=== PATIENT | male | born 1945 | race Caucasian/White ===

== ENCOUNTER 2023-03-10 15:53 | Inpatient (IN) ==
--- NOTE | 2023-03-10 16:18 | ED Triage Note ---
Date of Service March 10, 2023 Provider in Triage Author: Nicole Coleman History of Present Illness This patient was briefly evaluated while in triage. An abbreviated physical exam was performed. This patient is a 78-year-old Male who presents to the ED for evaluation of leg weakness and back pain. The patient states that his lower back started hurting after shoveling snow 2 weeks ago. He has slowly started to feel his legs feeling heavier, feels like his legs are getting weaker, and now feels like he has a foot drop on the left. Feels like he has no power in his legs. Saw his PCP initially and had outpatient x-rays done at [facility] that were unremarkable per patient. He has an MRI scheduled on 03/19/23, but when he called his PCP about the foot drop, his PCP sent him to the ER. Physical Exam GENERAL: Non-toxic and in no acute distress. HEENT: Pupils equal. No obvious scleral icterus. HEART: Regular rate and rhythm. LUNGS: Clear to auscultation. No accessory muscle use. ABDOMEN: Soft, non-tender. NEURO: Alert and oriented. No obvious neurological deficits on quick neuro exam. MUSCULOSKELETAL: Tender to palpation in the lower lumbar spine and paraspinal muscles. Bilateral lower extremities appear weak on quick exam in triage. Initial orders for labs and / or imaging were placed and patient was placed in the waiting area until a bed is available. Please see further documentation for the full ED course. MDM / Impression Impression Impression: Central stenosis of spinal canal, Bilateral leg weakness, Positive Lyme disease serology
[2023-03-10 17:39] LABS: Basophils # (auto) 0.18 K/uL (0.00-0.20); Eosinophils # (auto) 0.12 K/uL (0.00-0.50); Eosinophils % (auto) 2.7 %; Hematocrit (blood only) 36.4 % (42.0-52.0); Hemoglobin 12.5 g/dl (14.0-18.0); Immature Granulocytes # (auto) 0.09 K/uL (0.01-0.20); Lymphocytes # (auto) 1.16 K/uL (1.20-3.40); Lymphocytes % (auto) 26.1 %; Mean Corpuscular Hgb Conc 34.3 g/dL (32.0-36.0); Mean Corpuscular Volume 107.7 fL (80.0-100.0); Mean Platelet Volume 10.1 fL (9.4-12.4); Monocytes # (auto) 0.91 K/uL (0.11-0.59); Monocytes % (auto) 20.4 %; Neutrophils # (auto) 1.99 K/uL (1.40-6.50); Neutrophils % (auto) 44.8 %; Platelet Count 283 K/uL (130-400); RDW Coefficient of Variation 14.1 % (11.5-14.5); RDW Standard Deviation 55.6 fL (36.4-46.3); Red Blood Count 3.38 M/uL (4.70-6.10); White Blood Count 4.45 K/ul (4.8-10.8)
--- NOTE | 2023-03-10 18:03 | Emergency Department Note ---
Impression & Plan Central stenosis of spinal canal, Bilateral leg weakness, Positive Lyme disease serology ED Provider Note NAME: ROBERTO ECHEVERRIA AGE: 78 SEX: M : 1945 ARRIVES VIA: Walk-In INFORMANT: Patient, the patient's family member ED PROVIDER(S): Henrique Marr DO CHIEF COMPLAINT: Weakness HPI: The patient is a 78-year-old male who presented to the emergency department at the request of his primary care physician for an evaluation of lower extremity weakness. The patient's had 2 weeks of symptoms. He is noticed increasing weakness of both legs but worse on the left. He denies having any difficulty with his upper extremities or difficulty speaking. He denies having any headaches. He had x-rays of his lower back done by his primary care physician. He went to see him today for follow-up appointment and was referred to the emergency department for further evaluation. ROS: See above HPI for pertinent positives & negatives. A total of 10 systems reviewed and were otherwise negative. PAST MEDICAL HISTORY: See Below PAST SURGICAL HISTORY: See Below FAMILY HISTORY: See Below SOCIAL HISTORY: See Below HOME MEDICATIONS: See Below ALLERGIES: See Below VITALS: See Below PHYSICAL EXAMINATION: GENERAL: Patient is awake alert in no acute distress patient is resting comfortably and showing no signs of anxiety EYES: The conjunctivae are clear. The pupils are round and reactive. EARS, NOSE, MOUTH AND THROAT: The nose is without any evidence of any deformity. NECK: The neck is nontender and supple. RESPIRATORY: Normal respiratory effort is noted there is no evidence of wheezing rhonchi or rales CARDIOVASCULAR: Regular rate and rhythm noted there no murmurs rubs or gallops normal S1 normal S2. GASTROINTESTINAL: The abdomen is soft. Abdomen is nontender. BACK: No midline tenderness or or step-off noted range of motion in flexion extension as well as rotation no signs of muscle spasm noted MUSCULOSKELETAL/EXTREMITIES: There is no evidence of gross deformity full range of motion is noted in the hips and shoulders. SKIN: There is no obvious evidence of any rash. There are no petechiae, pallor or cyanosis noted. NEUROLOGIC: Patient is awake alert and oriented x3. There was no drift in the upper extremities. Speech is clear. There is no facial droop. Both lower extremities appear very weak with absent patellar tendon reflexes. There is a foot drop on the left. MEDICAL DECISION MAKING: The patient is a 78-year-old male who presented to the emergency department for an evaluation of lower extremity weakness. The patient has had ongoing symptoms over the course of the last few weeks. The patient does have absent patellar tendon reflexes bilaterally and appears to have a foot drop on the right. This appears to be new according to family. He had x-rays as an outpatient but no definite cause for his symptoms could be found. He presented to the emergency department tonight for further evaluation. The patient had the majority of his workup done from the waiting room. He was taken back to a room and I was able to evaluate the patient. His gait does appear to be consistent with some degree of spinal cord abnormality. MRI does appear to be consistent with significant central canal stenosis. He was treated with Decadron in the emergency department. I discussed his condition with the on-call orthopedic spinal specialist. He does recommend inpatient management for possible evaluation for surgery. I discussed this with the patient and his family member. They were agreeable with this plan. [facility] The patient did have a positive Lyme screen. I am unsure of the significance of this. I am not sure this fits with a Lyme disease but reportedly the patient did have some joint pain prior to the onset of the symptoms. I will defer antibiotic treatment to the admitting team. Triage Nursing notes reviewed. Prior medical records reviewed Vital Signs: reviewed and remarkable for elevated blood pressure. Differential diagnosis: Infection, dehydration, metabolic abnormality, hypo/hyperglycemia, electrolyte disturbance, anemia, hypoxia, cardiac sources, intracerebral event, toxicologic, neurologic, as well as other pathologies. ER treatment provided: See below Diagnostics interpreted by me: ECG: none Cardiac Monitoring: An order was placed for continuous cardiac monitoring. The monitor shows a rate of 71 bpm with sinus rhythm. Laboratory studies: As stated above and show below. Imaging studies: See below. Radiographic imaging was reviewed by myself Consultation(s): I discussed this case with Dr. Cote who is on-call for orthopedic spine. Dr. Munroe [facility]. Past Med/Surg History Medical History BPH with obstruction/lower urinary tract symptoms Tobacco use Proteinuria Colitis Aortic aneurysm Essential hypertension Cervical radiculopathy Dyslipidemia Peripheral vascular disease Type 2 diabetes mellitus Surgical History History of intravascular stent placement H/O wrist surgery History of carotid endarterectomy right S/P AAA repair Social History Smoking Status: Current every day smoker Tobacco Type: E-cigarettes / Vaping Cigarettes Per Day: 5-10; Preferred Language: Egyptian Communication Ability: Effective [employer] Instrument Repairer Required: No marital status: current occupational status: retired 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 Feels Safe at Home: Yes Allergies Allergies Allergy/AdvReac Type Severity Reaction Status Date / Time bee venom protein (honey bee) Allergy Severe ANAPHYLAXIS Verified 02/18/23 11:31 Home Meds Home Medications Medication Instructions Recorded Confirmed atorvastatin 40 mg tablet 40 mg PO QPM 12/07/19 03/10/23 epinephrine 0.3 mg/0.3 mL 0.3 mg IM ONCE PRN anaphylaxis 12/07/19 03/10/23 injection, auto-injector (EpiPen 2-Evens) losartan 100 mg tablet 100 mg PO QAM 12/07/19 03/10/23 aspirin 81 mg chewable tablet 81 mg PO QAM 03/01/20 03/10/23 gabapentin 300 mg capsule 300 mg PO TID 09/03/20 03/10/23 fenofibrate nanocrystallized 145 145 mg PO PM 09/03/22 03/10/23 mg tablet ibuprofen 200 mg tablet (Advil) 600 mg PO Q6H PRN Pain 10/09/22 03/10/23 amlodipine 2.5 mg tablet 2.5 mg PO PM 03/10/23 03/10/23 dapagliflozin propanediol 10 mg 10 mg PO QAM 03/10/23 03/10/23 tablet (Farxiga) Results & Data (ED) Vital Signs Vital Signs - 24 hr 03/10/23 16:15 03/10/23 19:43 Temperature 36.9 C Temperature Source Temporal Artery Scan Pulse Rate 76 Pulse Rate [Right Finger] 71 Pulse Rhythm [Right Finger] Regular Pulse Strength [Right Finger] Normal Respiratory Rate 16 16 Respiratory Effort / Characteristics Non-Labored Spontaneous Non-Labored Spontaneous Respiratory Depth Normal Normal Respiratory Pattern Regular Blood Pressure 166/72 H Blood Pressure [Right Arm] 165/66 H Blood Pressure Mean 103 Blood Pressure Mean [Right Arm] 99 Blood Pressure Position [Right Arm] Lying Pulse Oximetry 93 95 Oxygen Delivery Method Room Air Room Air Sepsis Recent Fever Within 48 Hours No Sepsis New/Unexplained Change in Mental Status N/A Sepsis Action Taken by Nursing No Action Required Home Medications Current Medication List: was personally reviewed by me Laboratory Data Attestation: I reviewed the patient's lab results. 03/10/23 17:16 03/10/23 17:16 Lab Results 03/10/23 03/10/23 Range/Units 17:16 19:44 WBC 4.45 L (4.8-10.8) K/ul RBC 3.38 L (4.70-6.10) M/uL Hgb 12.5 L (14.0-18.0) g/dl Hct 36.4 L (42.0-52.0) % MCV 107.7 H (80.0-100.0) fL MCH 37.0 H (25.0-34.0) pg MCHC 34.3 (32.0-36.0) g/dL RDW Std Deviation 55.6 H (36.4-46.3) fL RDW Coeff of Germán 14.1 (11.5-14.5) % Plt Count 283 (130-400) K/uL MPV 10.1 (9.4-12.4) fL Immature Gran % (Auto) 2.0 % Neut % (Auto) 44.8 % Lymph % (Auto) 26.1 % Dunn % (Auto) 20.4 % Eos % (Auto) 2.7 % Baso % (Auto) 4.0 % Neut # (Auto) 1.99 (1.40-6.50) K/uL Lymph # (Auto) 1.16 L (1.20-3.40) K/uL Dunn # (Auto) 0.91 H (0.11-0.59) K/uL Eos # (Auto) 0.12 (0.00-0.50) K/uL Baso # (Auto) 0.18 (0.00-0.20) K/uL Immature Gran # (Auto) 0.09 (0.01-0.20) K/uL Sodium 139 (136-145) mmol/L Potassium 4.5 (3.5-5.1) mmol/L Chloride 106 (98-107) mmol/L Carbon Dioxide 24 (21-32) mmol/L Anion Gap 9 (3-11) BUN 38 H (6-23) mg/dl Creatinine 1.60 H (0.6-1.4) mg/dl Est Cr Clr Drug Dosing Not Reportable Est GFR ( Amer) 47.5 ml/min Est GFR (Non-Af Amer) 40.9 ml/min BUN/Creatinine Ratio 23.8 H (10-20) Glucose 96 (70-99(Fasting)) mg/dl Calcium 9.6 (8.6-10.3) mg/dl Magnesium 2.5 H (1.7-2.4) mg/dl Total Bilirubin 0.4 (0.2-1.0) mg/dl AST 25 (13-39) U/L ALT 19 (7-52) U/L Alkaline Phosphatase 67 (34-104) U/L Total Creatine Kinase 291 H (30-223) U/L Total Protein 8.3 (6.0-8.3) gm/dl Albumin 4.8 (3.4-5.0) gm/dl Globulin 3.5 (2.5-4.0) gm/dl Albumin/Globulin Ratio 1.4 (0.9-2) TSH 3.463 (0.300-4.500) uIu/ml Urine Color Yellow Urine Appearance Clear (Clear) Urine pH 5.5 (4.5-7.5) Ur Specific [place] 1.018 (1.000-1.030) Urine Protein 2+ H (Negative) Urine Glucose (UA) 3+ H (Negative) Urine Ketones Negative (Negative) Urine Blood Negative (Negative) Urine Nitrite Negative (Negative) Urine Bilirubin Negative (Negative) Urine Urobilinogen Negative (Negative) Ur Leukocyte Esterase Negative (Negative) Urine WBC (Auto) 0 (0-5) /hpf Urine RBC (Auto) 0-4 (0-4) /hpf U Hyaline Cast (Auto) 0 (0-5) /lpf U Epithel Cells (Auto) 0-5 (0-5) /lpf Urine Bacteria (Auto) Negative (Negative) Lyme Disease IgG Ab Positive A (Negative) Lyme Disease IgM Ab Positive A (Negative) Administered Medications Sodium Chloride (Nss) 1,000 mls @ 999 mls/hr IV .Q1H1M ONE Stop: 03/10/23 22:07 Last Admin: 03/10/23 21:11 Dose: 999 mls/hr Documented By: KMS Discontinued Medications Dexamethasone Sodium Phosphate (DexamethasonePf 10 Mg/Ml Vial) 10 mg IV NOW ONE Stop: 03/10/23 20:09 Last Admin: 03/10/23 20:18 Dose: 10 mg Documented By: IDD Imaging Data Attestation: I personally reviewed and interpreted this imaging study as follows: My Impression: MRI was obtained in the emergency department. I did review the films. There is some degree of canal compromise noted on the MRI especially on axial view. Final report below. Radiologist's Impression: Lumbar Spine MRI 03/10/23 16:19 MR lumbar spine wo con CLINICAL HISTORY: 78 years-old Male with Low back pain, foot drop, weakness of his legs. COMPARISON: None. TECHNIQUE: Multiplanar, multi sequence MRI of the lumbar spine was performed without intravenous contrast. FINDINGS: Study is mildly motion degraded.r partially imaged 4 cm T2 hyperintense lesion of the superior pole left kidney suggestive of a probable cyst. Additional bilateral renal cysts. There is abnormal appearance of the iliac bifurcation which may be on a postsurgical basis. No abdominal aortic aneurysm. Mild infrarenal ectasia of the abdominal aorta measuring up to 2.3 cm. No acute fracture, subluxation, endplate erosion or marrow replacing process. There is transitional lumbosacral anatomy. For the purposes of this exam, the L5-S1 disc space will be described on axial image 28 series 7. Conus medullaris terminates at the L1 level. Mild dextroscoliosis. T12-L1: Moderate facet arthrosis. No central canal or neural foraminal stenosis. L1-L2: Mild intervertebral disc space narrowing and spondylotic spurring with small circumferential annular disc bulge. Moderate facet arthrosis. No central canal or neural foraminal stenosis. L2-L3: Moderate intervertebral disc space narrowing and spondylotic spurring with circumferential annular disc bulging, ligamentum flavum thickening and severe facet arthrosis. Moderate to severe central canal stenosis with AP dimension of the thecal sac measuring 6 mm. Moderate right with severe left lateral recess narrowing. [id number] right with severe left foraminal stenosis. L3-L4: Degenerative related 4 mm anterolisthesis. Moderate intervertebral disc space narrowing and spondylotic spurring with circumferential annular disc bulging/disc osteophyte complex. Minimal thickening thickening with severe facet arthrosis and trace right facet effusion. Severe central canal stenosis with AP dimension of the thecal sac measuring 5 mm. Severe narrowing of the lateral recesses. Moderate to severe right with moderate left foraminal narrowing. L4-L5: Moderate intervertebral disc space narrowing and spondylotic spurring with circumferential annular disc bulging/posterior disc osteophyte complex. Ligament of thickening with advanced facet arthrosis and left facet effusion. Mild central canal stenosis with AP dimension of the thecal sac measuring 9 mm. Moderate narrowing of the lateral recesses. Moderate to severe right with moderate left foraminal narrowing. L5-S1: Severe intervertebral disc space narrowing. Circumferential disc osteophyte complex. Ligamentum flavum thickening with moderate to severe facet arthrosis. Flattening of the ventral thecal sac without significant central canal stenosis. There is at least mild bilateral foraminal narrowing. Severe right with moderate left foraminal stenosis. IMPRESSION: 1. No acute fracture or subluxation. 2. Transitional lumbosacral anatomy with numbering as above. 3. Discogenic degeneration with spondylotic spurring and facet arthrosis as detailed above. 4. There is severe central canal stenosis at L3-L4 with moderate to severe central canal stenosis at L2-L3. 5. Multilevel foraminal narrowing. ACT 112: Negative or not required by law. The above report was generated using voice recognition software. It may contain grammatical, syntax or spelling errors. Electronically signed by: Devon Guillen M.D. 03/10/2023 7:14 PM Discharge Plan Visit Data Chief Complaint: Leg Weakness, Bilateral Stated Complaint: TROUBLE WALKING, WEAKNESS IN LEGS, BACK PAIN ED Provider: Henrique Marr Discharge Problem: Central stenosis of spinal canal, Bilateral leg weakness, Positive Lyme disease serology Patient Disposition: Being Evaluated by Hospitalist Forms Stand Alone Forms: My [facility] Prescriptions Prescriptions: No Action epinephrine [EpiPen 2-Evens] 0.3 mg/0.3 mL auto-injector 0.3 mg IM ONCE PRN (Reason: anaphylaxis) losartan 100 mg tablet 100 mg PO QAM atorvastatin 40 mg tablet 40 mg PO QPM gabapentin 300 mg capsule 300 mg PO TID Rx Instructions: taking 600 mg daily aspirin 81 mg tablet,chewable 81 mg PO QAM ibuprofen [Advil] 200 mg tablet 600 mg PO Q6H PRN (Reason: Pain) fenofibrate nanocrystallized 145 mg tablet 145 mg PO PM Farxiga 10 mg tablet 10 mg PO QAM amlodipine 2.5 mg tablet 2.5 mg PO PM Referrals Referrals: Vanessa Jacobs MD [Primary Care Provider] -
[2023-03-10 18:10] LABS: Thyroid Stimulating Hormone 3.463 uIu/ml (0.300-4.500)
[2023-03-10 18:34] LABS: Lyme Ab IgG w/WB Rflx Positive (Negative); Lyme Ab IgM w/WB Rflx Positive (Negative)
[2023-03-10 19:14] LABS: Albumin Level 4.8 gm/dl (3.4-5.0); Anion Gap 9 (3-11); Bilirubin,Total 0.4 mg/dl (0.2-1.0); Calcium 9.6 mg/dl (8.6-10.3); Carbon Dioxide 24 mmol/L (21-32); Chloride 106 mmol/L (98-107); Magnesium 2.5 mg/dl (1.7-2.4); Potassium 4.5 mmol/L (3.5-5.1); Sodium 139 mmol/L (136-145)
--- NOTE | 2023-03-10 19:17 | Magnetic Resonance Report ---
MR lumbar spine wo con CLINICAL HISTORY: 78 years-old Male with Low back pain, foot drop, weakness of his legs. COMPARISON: None. TECHNIQUE: Multiplanar, multi sequence MRI of the lumbar spine was performed without intravenous cont rast. FINDINGS: Study is mildly motion degraded.r partially imaged 4 cm T2 hyperintense lesion of the superior pole l eft kidney suggestive of a probable cyst. Additional bilateral renal cysts. There is abnormal appeara nce of the iliac bifurcation which may be on a postsurgical basis. No abdominal aortic aneurysm. Mild infrarenal ectasia of the abdominal aorta measuring up to 2.3 cm. No acute fracture, subluxation, en dplate erosion or marrow replacing process. There is transitional lumbosacral anatomy. For the purpos es of this exam, the L5-S1 disc space will be described on axial image 28 series 7. Conus medullaris terminates at the L1 level. Mild dextroscoliosis. T12-L1: Moderate facet arthrosis. No central canal or neural foraminal stenosis. L1-L2: Mild intervertebral disc space narrowing and spondylotic spurring with small circumferential annular disc bulge. Moderate facet arthrosis. No central canal or neural foraminal stenosis. L2-L3: Moderate intervertebral disc space narrowing and spondylotic spurring with circumferential an nular disc bulging, ligamentum flavum thickening and severe facet arthrosis. Moderate to severe centr al canal stenosis with AP dimension of the thecal sac measuring 6 mm. Moderate right with severe left lateral recess narrowing. [id number] right with severe left foraminal stenosis. L3-L4: Degenerative related 4 mm anterolisthesis. Moderate intervertebral disc space narrowing and s pondylotic spurring with circumferential annular disc bulging/disc osteophyte complex. Minimal thicke errol thickening with severe facet arthrosis and trace right facet effusion. Severe central canal sten osis with AP dimension of the thecal sac measuring 5 mm. Severe narrowing of the lateral recesses. Mo derate to severe right with moderate left foraminal narrowing. L4-L5: Moderate intervertebral disc space narrowing and spondylotic spurring with circumferential an nular disc bulging/posterior disc osteophyte complex. Ligament of thickening with advanced facet arth rosis and left facet effusion. Mild central canal stenosis with AP dimension of the thecal sac measur ing 9 mm. Moderate narrowing of the lateral recesses. Moderate to severe right with moderate left for aminal narrowing. L5-S1: Severe intervertebral disc space narrowing. Circumferential disc osteophyte complex. Ligament um flavum thickening with moderate to severe facet arthrosis. Flattening of the ventral thecal sac wi thout significant central canal stenosis. There is at least mild bilateral foraminal narrowing. Sever e right with moderate left foraminal stenosis. IMPRESSION: 1. No acute fracture or subluxation. 2. Transitional lumbosacral anatomy with numbering as above. 3. Discogenic degeneration with spondylotic spurring and facet arthrosis as detailed above. 4. There is severe central canal stenosis at L3-L4 with moderate to severe central canal stenosis at L2-L3. 5. Multilevel foraminal narrowing. ACT 112: Negative or not required by law. The above report was generated using voice recognition software. It may contain grammatical, syntax o r spelling errors. Electronically signed by: Devon Guillen M.D. 03/10/2023 7:14 PM
[2023-03-10 19:20] LABS: Alanine Aminotransferase 19 U/L (7-52); Albumin Globulin Ratio 1.4 (0.9-2); Alkaline Phosphatase 67 U/L (34-104); Aspartate Aminotransferase 25 U/L (13-39); BUN Creatinine Ratio 23.8 (10-20); Blood Urea Nitrogen 38 mg/dl (6-23); Creatine Kinase 291 U/L (30-223); Est GFR (African American) 47.5 ml/min; Est GFR (Non-African American) 40.9 ml/min; Globulin 3.5 gm/dl (2.5-4.0); Glucose 96 mg/dl (70-99(Fasting)); Total Protein 8.3 gm/dl (6.0-8.3)
[2023-03-10 19:56] LABS: Appearance Urine Clear (Clear); Bacteria Urine Automated Negative (Negative); Bilirubin Urine Negative (Negative); Blood Urine Negative (Negative); Cast Urine Automated 0 /lpf (0-5); Color Urine Yellow; Epithelial Cell Urine Auto 0-5 /lpf (0-5); Glucose Urine UA 3+ (Negative); Ketones Urine Negative (Negative); Leukocyte Esterase Urine Negative (Negative); Nitrite Urine Negative (Negative); Protein Urine 2+ (Negative); RBC Urine Automated 0-4 /hpf (0-4); Specific Gravity Urine 1.018 (1.000-1.030); Urobilinogen Urine Negative (Negative); WBC Urine Automated 0 /hpf (0-5); pH Urine 5.5 (4.5-7.5)
[2023-03-10] MEDS ORDERED: dexAMETHasone**PF** 10 MG/ML VIAL IV ONE (20:08)
[2023-03-10] MEDS ORDERED: SODIUM CHLORIDE 0.9% 1,000 ML IV ONE (21:07)
[2023-03-10] MEDS ORDERED: DOXYCYCLINE HYCLATE 100 MG in DEXTROSE 5% MINI-B 100 ML IV STA (21:16)
[2023-03-10] MEDS ORDERED: GABAPENTIN 300 MG CAP PO STA (21:17)
[2023-03-10] MEDS ORDERED: amLODIPine BESYLATE 5 MG TAB PO ONE (21:17)
[2023-03-10] MEDS ORDERED: FENOFIBRATE NANOCRYSTALLIZED 145 MG TABLET PO STA (21:17)
[2023-03-10] MEDS ORDERED: ATORVASTATIN 40 MG TAB PO STA (21:17)
--- NOTE | 2023-03-10 21:29 | History & Physical Report ---
Date of Service March 10, 2023 Assessment & Plan (1) Lower extremity weakness: Plan: 78 yo male with PMHx of vitamin D deficiency, CKD, BPH w/ LUTS, DM2, HLD, HTN, and carotid artery occlusion s/p ?TCAR presents with bilateral lower extremity weakness. #Bilateral Lower Extremity Weakness -presented with 2 weeks progressively worsening lower extremity weakness and now L foot drop. Lumbar MRI with central canal stenosis which could be contributing to symptoms, however, patient also presumptively positive for lyme IgM, western blot pending. I suspect his acute symptoms are more likely due to infection as he was asymptomatic prior to 2 weeks ago - will cont. to monitor with treatment. -doxycycline 100mg bid - defer length of treatment to day team, especially if W[employer]ING [employer]ING [employer] SUPERVISOR involvement given foot drop -received Decadron 10mg in ED. Cont. 4mg q8h. -consulted ortho spine #Anemia -Hgb 12.5 on admission. MCV 107. -ordered iron studies, B12 level #CKD stage G2/A3 (mild impairment) -Cr on admission 1.6. Elevation appears chronic. Follows nephro. -will give 1L NSS -hold farxiga #CAD, PVD, Carotid Stenosis s/p ?TCAR -cont. asa, statin, losartan #HLD -cont. statin, fenofibrate #HTN -cont. amlodipine, losartan #DM2 -hold farxiga -placed on SSI #Neuropathy cont. gabapentin DVT ppx: heparin SQ FEN/GI: HH, DM2 Code Status: DNI only Dispo: med tele (2) Dyslipidemia: (3) Peripheral vascular disease: (4) Type 2 diabetes mellitus: (5) Chronic kidney disease: (6) Proteinuria: (7) Carotid artery occlusion: (8) Essential hypertension: (9) BPH with obstruction/lower urinary tract symptoms: (10) Vitamin D deficiency: History of Present Illness Chief Complaint: bilateral leg weakness Primary Care Provider: Vanessa Jacobs MD 78 yo male with PMHx of vitamin D deficiency, CKD, BPH w/ LUTS, DM2, HLD, HTN, and carotid artery occlusion s/p ?TCAR presents with bilateral lower extremity weakness. 2 weeks ago patient had sudden onset low back pain and bilateral lower extremity weakness which has progressively worsened. Denies injury. He has been using a cane to help with ambulation otherwise previous to symptoms he was walking on his own. He also does note a left foot drop as of yesterday. He does note he had an episode of foot drop a while back with quick resolution which was attributed to possible TIA. Otherwise he denies headache, fevers, chills, fatigue, chest pain, shortness of breath, abdominal pain, nausea, vomiting, diarrhea, dysuria, extremity numbness/tingling. No bladder or bowel incontinence. He denies any known tick bites but [facility] Allergies Allergy/AdvReac Type Severity Reaction Status Date / Time bee venom protein (honey bee) Allergy Severe ANAPHYLAXIS Verified 02/18/23 11:31 Home Medications Medication Instructions Recorded Confirmed Type atorvastatin 40 mg tablet 40 mg PO QPM 12/07/19 03/10/23 History epinephrine 0.3 mg/0.3 mL 0.3 mg IM ONCE PRN anaphylaxis 12/07/19 03/10/23 History injection, auto-injector (EpiPen 2-Evens) losartan 100 mg tablet 100 mg PO QAM 12/07/19 03/10/23 History aspirin 81 mg chewable tablet 81 mg PO QAM 03/01/20 03/10/23 History gabapentin 300 mg capsule 300 mg PO TID 09/03/20 03/10/23 History fenofibrate nanocrystallized 145 145 mg PO PM 09/03/22 03/10/23 History mg tablet ibuprofen 200 mg tablet (Advil) 600 mg PO Q6H PRN Pain 10/09/22 03/10/23 History amlodipine 2.5 mg tablet 2.5 mg PO PM 03/10/23 03/10/23 History dapagliflozin propanediol 10 mg 10 mg PO QAM 03/10/23 03/10/23 History tablet (Farxiga) doxycycline hyclate 100 mg capsule 100 mg PO BID #56 caps 03/11/23 Rx prednisone 10 mg tablet See Rx Instructions .Route 03/11/23 Rx .COMPLEX #12 tabs Past Med/Surg History Medical History BPH with obstruction/lower urinary tract symptoms Tobacco use Proteinuria Colitis Aortic aneurysm Essential hypertension Cervical radiculopathy Dyslipidemia Peripheral vascular disease Type 2 diabetes mellitus Surgical History History of intravascular stent placement H/O wrist surgery History of carotid endarterectomy right S/P AAA repair Social History Smoking Status: Current every day smoker Tobacco Type: E-cigarettes / Vaping Cigarettes Per Day: 5-10; Do You Dip or Chew Tobacco: No; Hx Alcohol Use: No Hx Substance Use: No Preferred Language: [place] Communication Ability: Effective Community Health Nurse Staff Required: No Beliefs That Will Affect Care: None marital status: Current Living Situation: Family current occupational status: retired 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 AOx3. Vitals as above. HEENT: No scleral injection or discharge.Moist mucous membranes. Neck: Supple without lymphadenopathy. Trachea midline. Lungs: Clear to auscultation bilaterally with good effort. No wheezes/rales/rhonchi. Cardiac: Regular rate and rhythm.No murmurs. No lower extremity edema. 2+ distal peripheral pulses. Abdomen: Bowel sounds present. Soft, nontender, and nondistended.No guarding. No hepatosplenomegaly. MSK: No cyanosis or clubbing. Upper extremities 5/5 strength. Negative straight leg raise. +foot drop L with 2/5 strength. Skin: No rashes, warm, dry. Neurologic: Grossly intact cranial nerves. PERRL. Sensation normal bilateral extremities. Results & Data Results & Data Vital Signs (Past 12 Hours) Vital Signs Temp Pulse Pulse Resp BP BP Pulse Ox 03/10/23 19:43 71 16 165/66 H 95 03/10/23 16:15 36.9 C 76 16 166/72 H 93 O2 Del Method 03/10/23 19:43 Room Air 03/10/23 16:15 Room Air Laboratory Results Laboratory Results WBC 4.45 K/ul (4.8-10.8) L 03/10/23 17:16 RBC 3.38 M/uL (4.70-6.10) L 03/10/23 17:16 Hgb 12.5 g/dl (14.0-18.0) L 03/10/23 17:16 Hct 36.4 % (42.0-52.0) L 03/10/23 17:16 MCV 107.7 fL (80.0-100.0) H 03/10/23 17:16 MCH 37.0 pg (25.0-34.0) H 03/10/23 17:16 MCHC 34.3 g/dL (32.0-36.0) 03/10/23 17:16 RDW Std Deviation 55.6 fL (36.4-46.3) H 03/10/23 17:16 RDW Coeff of Germán 14.1 % (11.5-14.5) 03/10/23 17:16 Plt Count 283 K/uL (130-400) 03/10/23 17:16 MPV 10.1 fL (9.4-12.4) 03/10/23 17:16 Immature Gran % (Auto) 2.0 % 03/10/23 17:16 Neut % (Auto) 44.8 % 03/10/23 17:16 Lymph % (Auto) 26.1 % 03/10/23 17:16 [place] % (Auto) 20.4 % 03/10/23 17:16 Eos % (Auto) 2.7 % 03/10/23 17:16 Baso % (Auto) 4.0 % 03/10/23 17:16 Neut # (Auto) 1.99 K/uL (1.40-6.50) 03/10/23 17:16 Lymph # (Auto) 1.16 K/uL (1.20-3.40) L 03/10/23 17:16 [place] # (Auto) 0.91 K/uL (0.11-0.59) H 03/10/23 17:16 Eos # (Auto) 0.12 K/uL (0.00-0.50) 03/10/23 17:16 Baso # (Auto) 0.18 K/uL (0.00-0.20) 03/10/23 17:16 Immature Gran # (Auto) 0.09 K/uL (0.01-0.20) 03/10/23 17:16 Sodium 139 mmol/L (136-145) 03/10/23 17:16 Potassium 4.5 mmol/L (3.5-5.1) 03/10/23 17:16 Chloride 106 mmol/L (98-107) 03/10/23 17:16 Carbon Dioxide 24 mmol/L (21-32) 03/10/23 17:16 Anion Gap 9 (3-11) 03/10/23 17:16 BUN 38 mg/dl (6-23) H 03/10/23 17:16 Creatinine 1.60 mg/dl (0.6-1.4) H 03/10/23 17:16 Est Cr Clr Drug Dosing Not Reportable 03/10/23 17:16 Est GFR ( Amer) 47.5 ml/min 03/10/23 17:16 Est GFR (Non-Af Amer) 40.9 ml/min 03/10/23 17:16 BUN/Creatinine Ratio 23.8 (10-20) H 03/10/23 17:16 Glucose 96 mg/dl (70-99(Fasting)) 03/10/23 17:16 Calcium 9.6 mg/dl (8.6-10.3) 03/10/23 17:16 Magnesium 2.5 mg/dl (1.7-2.4) H 03/10/23 17:16 Total Bilirubin 0.4 mg/dl (0.2-1.0) 03/10/23 17:16 AST 25 U/L (13-39) 03/10/23 17:16 ALT 19 U/L (7-52) 03/10/23 17:16 Alkaline Phosphatase 67 U/L (34-104) 03/10/23 17:16 Total Creatine Kinase 291 U/L (30-223) H 03/10/23 17:16 Total Protein 8.3 gm/dl (6.0-8.3) 03/10/23 17:16 Albumin 4.8 gm/dl (3.4-5.0) 03/10/23 17:16 Globulin 3.5 gm/dl (2.5-4.0) 03/10/23 17:16 Albumin/Globulin Ratio 1.4 (0.9-2) 03/10/23 17:16 TSH 3.463 uIu/ml (0.300-4.500) 03/10/23 17:16 Urine Color Yellow 03/10/23 19:44 Urine Appearance Clear (Clear) 03/10/23 19:44 Urine pH 5.5 (4.5-7.5) 03/10/23 19:44 Ur Specific [place] 1.018 (1.000-1.030) 03/10/23 19:44 Urine Protein 2+ (Negative) H 03/10/23 19:44 Urine Glucose (UA) 3+ (Negative) H 03/10/23 19:44 Urine Ketones Negative (Negative) 03/10/23 19:44 Urine Blood Negative (Negative) 03/10/23 19:44 Urine Nitrite Negative (Negative) 03/10/23 19:44 Urine Bilirubin Negative (Negative) 03/10/23 19:44 Urine Urobilinogen Negative (Negative) 03/10/23 19:44 Ur Leukocyte Esterase Negative (Negative) 03/10/23 19:44 Urine WBC (Auto) 0 /hpf (0-5) 03/10/23 19:44 Urine RBC (Auto) 0-4 /hpf (0-4) 03/10/23 19:44 U Hyaline Cast (Auto) 0 /lpf (0-5) 03/10/23 19:44 U Epithel Cells (Auto) 0-5 /lpf (0-5) 03/10/23 19:44 Urine Bacteria (Auto) Negative (Negative) 03/10/23 19:44 Lyme Disease IgG Ab Positive (Negative) A 03/10/23 17:16 Lyme Disease IgM Ab Positive (Negative) A 03/10/23 17:16 Impressions Lumbar Spine MRI 03/10/23 16:19 MR lumbar spine wo con CLINICAL HISTORY: 78 years-old Male with Low back pain, foot drop, weakness of his legs. COMPARISON: None. TECHNIQUE: Multiplanar, multi sequence MRI of the lumbar spine was performed without intravenous contrast. FINDINGS: Study is mildly motion degraded.r partially imaged 4 cm T2 hyperintense lesion of the superior pole left kidney suggestive of a probable cyst. Additional bilateral renal cysts. There is abnormal appearance of the iliac bifurcation which may be on a postsurgical basis. No abdominal aortic aneurysm. Mild infrarenal ectasia of the abdominal aorta measuring up to 2.3 cm. No acute fracture, subluxation, endplate erosion or marrow replacing process. There is transitional lumbosacral anatomy. For the purposes of this exam, the L5-S1 disc space will be described on axial image 28 series 7. Conus medullaris terminates at the L1 level. Mild dextroscoliosis. T12-L1: Moderate facet arthrosis. No central canal or neural foraminal stenosis. L1-L2: Mild intervertebral disc space narrowing and spondylotic spurring with small circumferential annular disc bulge. Moderate facet arthrosis. No central canal or neural foraminal stenosis. L2-L3: Moderate intervertebral disc space narrowing and spondylotic spurring with circumferential annular disc bulging, ligamentum flavum thickening and severe facet arthrosis. Moderate to severe central canal stenosis with AP dimension of the thecal sac measuring 6 mm. Moderate right with severe left lateral recess narrowing. [id number] right with severe left foraminal stenosis. L3-L4: Degenerative related 4 mm anterolisthesis. Moderate intervertebral disc space narrowing and spondylotic spurring with circumferential annular disc bulging/disc osteophyte complex. Minimal thickening thickening with severe facet arthrosis and trace right facet effusion. Severe central canal stenosis with AP dimension of the thecal sac measuring 5 mm. Severe narrowing of the lateral recesses. Moderate to severe right with moderate left foraminal narrowing. L4-L5: Moderate intervertebral disc space narrowing and spondylotic spurring with circumferential annular disc bulging/posterior disc osteophyte complex. Ligament of thickening with advanced facet arthrosis and left facet effusion. Mild central canal stenosis with AP dimension of the thecal sac measuring 9 mm. Moderate narrowing of the lateral recesses. Moderate to severe right with moderate left foraminal narrowing. L5-S1: Severe intervertebral disc space narrowing. Circumferential disc osteophyte complex. Ligamentum flavum thickening with moderate to severe facet arthrosis. Flattening of the ventral thecal sac without significant central ca nal stenosis. There is at least mild bilateral foraminal narrowing. Severe right with moderate left foraminal stenosis. IMPRESSION: 1. No acute fracture or subluxation. 2. Transitional lumbosacral anatomy with numbering as above. 3. Discogenic degeneration with spondylotic spurring and facet arthrosis as detailed above. 4. There is severe central canal stenosis at L3-L4 with moderate to severe central canal stenosis at L2-L3. 5. Multilevel foraminal narrowing. ACT 112: Negative or not required by law. The above report was generated using voice recognition software. It may contain grammatical, syntax or spelling errors. Electronically signed by: Devon Guillen M.D. 03/10/2023 7:14 PM Code Status & VTE Plan VTE Prophylaxis Plan VTE Prophylaxis will be ordered: Yes Supervising Physician Co-Signing Physician Notes Attending addendum: I have physically seen this patient, have supervised the medical residents activities, and agree with the H&P unless as otherwise noted. Assessment and Plan: Bilateral lower extremity weakness- Patient has tested positive for Lyme IgM and IgG MRI lumbar spine notes a central canal stenosis Received Decadron 10 mg IV in ED, will continue 4 mg IV every 8 hours Consult orthopedic spine surgery Dr. Cote Lyme disease- Presumptive treatment with doxycycline 100 mg p.o. twice daily May only not be contributing to lower extremity weakness Follow response to treatment Anemia- Hemoglobin 12.5 with an MCV of 107 B12 and iron studies ordered and pending Acute kidney injury superimposed on CKD stage III- Creatinine 1.6, with baseline 1.50- 1 L normal saline as noted, recheck laboratories in a.m. Hold losartan and Farxiga for now Remaining orders and notations as noted Resident Activity Tracking Resident Involvement: Resident Care Provided Care Provided: Adult [facility]
[2023-03-10] MEDS ORDERED: GLUCOSE 40% GEL 15 GM TUBE PO PRN (23:01)
[2023-03-10] MEDS ORDERED: ONDANSETRON 4 MG OD TAB PO PRN (23:01)
[2023-03-10] MEDS ORDERED: DEXTROSE 50% 50 ML SYRINGE IV PRN (23:01)
[2023-03-10] MEDS ORDERED: POLYETHYLENE (MIRALAX) 17 GM PACK PO PRN (23:01)
[2023-03-10] MEDS ORDERED: CARBOHYDRATES FOR HYPOGLYCEMIA PO PRN (23:01)
[2023-03-10] MEDS ORDERED: GLUCAGON FOR INJ 1 MG VIAL SQ PRN (23:01)
[2023-03-10] MEDS ORDERED: GLUCOSE 10 TAB/TUBE PO PRN (23:01)
[2023-03-10] MEDS ORDERED: ACETAMINOPHEN 325 MG TAB PO PRN (23:01)
[2023-03-11 06:28] LABS: Basophils # (auto) 0.04 K/uL (0.00-0.20); Basophils % (auto) 1.2 %; Hematocrit (blood only) 36.5 % (42.0-52.0); Hemoglobin 11.8 g/dl (14.0-18.0); Immature Granulocytes # (auto) 0.06 K/uL (0.01-0.20); Immature Granulocytes % (auto) 1.8 %; Lymphocytes # (auto) 0.63 K/uL (1.20-3.40); Lymphocytes % (auto) 18.8 %; Mean Corpuscular Hemoglobin 35.8 pg (25.0-34.0); Mean Corpuscular Hgb Conc 32.3 g/dL (32.0-36.0); Mean Corpuscular Volume 110.6 fL (80.0-100.0); Monocytes # (auto) 0.06 K/uL (0.11-0.59); Monocytes % (auto) 1.8 %; Neutrophils # (auto) 2.57 K/uL (1.40-6.50); Neutrophils % (auto) 76.4 %; Platelet Count 258 K/uL (130-400); RDW Standard Deviation 58.2 fL (36.4-46.3); White Blood Count 3.36 K/ul (4.8-10.8)
[2023-03-11 06:44] LABS: Albumin Globulin Ratio 1.4 (0.9-2); Albumin Level 4.5 gm/dl (3.4-5.0); BUN Creatinine Ratio 25.4 (10-20); Bilirubin,Total 0.6 mg/dl (0.2-1.0); Calcium 9.5 mg/dl (8.6-10.3); Creatinine Clr Calc Pharmacy 47.6 ml/min; Est GFR (Non-African American) 52.6 ml/min; Globulin 3.2 gm/dl (2.5-4.0); Magnesium 2.3 mg/dl (1.7-2.4); Potassium 4.6 mmol/L (3.5-5.1); Total Protein 7.7 gm/dl (6.0-8.3)
[2023-03-11 06:54] LABS: Macrocytosis Present
[2023-03-11 07:03] LABS: Ferritin 560.7 ng/ml (8-388)
[2023-03-11] MEDS: INSULIN ASPART PER UNIT CHARGE SC SCH ×2 (08:53→12:35)
[2023-03-11] MEDS ORDERED: LOSARTAN POTASSIUM 50 MG TAB PO SCH (09:00)
[2023-03-11] MEDS ORDERED: ASPIRIN 81 MG CHEW PO SCH (09:00)
[2023-03-11] MEDS ORDERED: GABAPENTIN 300 MG CAP PO SCH (09:00)
[2023-03-11] MEDS ORDERED: HEPARIN SOD 5,000 UNIT/0.5 ML VIAL SQ SCH (09:00)
[2023-03-11] MEDS ORDERED: dexAMETHasone 4 MG in SYRINGE 0 ML IV SCH (09:00)
[2023-03-11] MEDS ORDERED: DOXYCYCLINE HYCLATE 100 MG in DEXTROSE 5% MINI-B 100 ML IV SCH (09:00)
--- NOTE | 2023-03-11 09:50 | XRay Report ---
STANDING AP AND LATERAL LUMBAR SPINE RADIOGRAPHS CLINICAL HISTORY: standing films if possible COMPARISON STUDY: Lumbar spine MRI March 10, 2013. FINDINGS: Vascular stents are incidentally noted. There is a moderate amount of stool within the colo n. No evidence for a bowel obstruction. Lumbar spine vertebral body heights are maintained. There is no lumbar spine fracture. Moderate multilevel disc space narrowing and osteophytosis is present. Ther e is severe multilevel facet arthrosis. Slight anterolisthesis of L3 on L4 and L4 and L5 is noted. Th ere is mild lumbar spine dextroscoliosis. IMPRESSION: 1. No lumbar spine fractures. 2. Severe multilevel facet arthrosis and moderate degenerative disc disease within the lumbar spine. 3. Mild lumbar spine dextroscoliosis. Slight anterolisthesis of L3 on L4 and L4 and L5. ACT 112: Negative or not required by law. Electronically signed by: Keaton Gilmore M.D. 03/11/2023 9:49 AM
--- NOTE | 2023-03-11 09:52 | XRay Report ---
XR chest 1V not portable CLINICAL HISTORY: Preoperative evaluation. COMPARISON STUDY: No previous studies for comparison. FINDINGS: Lung volumes are normal. Lungs are clear. There is no pneumothorax or pleural effusion. Car diac size is normal. Mediastinal contours are normal. There is no evidence for pulmonary edema. IMPRESSION: No acute cardiopulmonary findings. ACT 112: Negative or not required by law. Electronically signed by: Keaton Gilmore M.D. 03/11/2023 9:51 AM
[2023-03-11 10:31] LABS: Partial Thromboplastin Time 28 Seconds (21-31); Prothrombin Time 11.4 Seconds (9.0-12.0)
[2023-03-11 11:34] VITALS: BP 169/68; PULSE 76; RESP 18; TEMP 97.5; O2SAT 94
--- NOTE | 2023-03-11 13:09 | Orthopedic Consultation ---
Date of Consultation March 11, 2023 Assessment & Plan (1) Central stenosis of spinal canal: MRI of the lumbar spine from yesterday demonstrates severe multilevel spinal stenosis most impressive at L3-L4. I did obtain x-rays of the spine which also demonstrates signs of anterolisthesis at multiple levels. Plan at length yesterday with patient and his daughter reviewing his clinical presentation and MRI findings. At this point he can continue medical management consider interventional pain management by way of epidural injections or ultimately surgical intervention. Surgery would be extensive in nature most likely requiring a decompression possible fusion L2-L3 L3-L4 L4-5. This point he would very much like to pursue injections. Will have him follow-up in our office in the next 3 to 4 weeks to assess his response. Clearly if he declines or fails to improve he is to return to the emergency room and we would have to intervene sooner. Patient or stands agrees. History of Present Illness Reason for Consultation: Bilateral leg pain and weakness Attending Physician: Jhony Jessica MD History of Present Illness This is a very pleasant 78-year-old male with send a decline in status for the past 3 weeks. He describes pain in the buttocks with numbness and weakness into the lower extremities. It has been progressive in nature. He has seen his chiropractor but is unable to obtain relief. He was admitted last night for workup. States this morning the medications have helped him to some degree and he was able to ambulate this morning to the bathroom. Still notes weakness predominantly left lower extremity compared to the right. Denies any loss of bowel or bladder control. Denies any history of undergoing epidural injections or lumbar surgery. Allergies Allergy/AdvReac Type Severity Reaction Status Date / Time bee venom protein (honey bee) Allergy Severe ANAPHYLAXIS Verified 02/18/23 11:31 Home Medications Medication Instructions Recorded Confirmed Type atorvastatin 40 mg tablet 40 mg PO QPM 12/07/19 03/10/23 History epinephrine 0.3 mg/0.3 mL 0.3 mg IM ONCE PRN anaphylaxis 12/07/19 03/10/23 History injection, auto-injector (EpiPen 2-Evens) losartan 100 mg tablet 100 mg PO QAM 12/07/19 03/10/23 History aspirin 81 mg chewable tablet 81 mg PO QAM 03/01/20 03/10/23 History gabapentin 300 mg capsule 300 mg PO TID 09/03/20 03/10/23 History fenofibrate nanocrystallized 145 145 mg PO PM 09/03/22 03/10/23 History mg tablet ibuprofen 200 mg tablet (Advil) 600 mg PO Q6H PRN Pain 10/09/22 03/10/23 History amlodipine 2.5 mg tablet 2.5 mg PO PM 03/10/23 03/10/23 History dapagliflozin propanediol 10 mg 10 mg PO QAM 03/10/23 03/10/23 History tablet (Farxiga) Patient History Medical History BPH with obstruction/lower urinary tract symptoms Tobacco use Proteinuria Colitis Aortic aneurysm Essential hypertension Cervical radiculopathy Dyslipidemia Peripheral vascular disease Type 2 diabetes mellitus Surgical History History of intravascular stent placement H/O wrist surgery History of carotid endarterectomy right S/P AAA repair Social History Smoking Status: Current every day smoker Tobacco Type: E-cigarettes / Vaping Cigarettes Per Day: 5-10; Do You Dip or Chew Tobacco: No; Hx Alcohol Use: No Hx Substance Use: No Preferred Language: Palestinian Communication Ability: Effective Voice Instructor Required: No Beliefs That Will Affect Care: None marital status: Current Living Situation: Family 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 He is evidence of a 3/5 left dorsiflexion to L4-5 on the right. Quadriceps and plantarflexion appear to be 5/5 bilaterally. Sensory is symmetric and intact to cold and light touch. There is negative logroll negative tension sign. Results & Data Vital Signs (Past 12 Hours) Vital Signs Temp Pulse Pulse Pulse Resp BP BP 03/11/23 11:33 36.4 C L 76 18 169/68 H 03/11/23 08:00 67 03/11/23 07:38 36.5 C 57 L 16 154/77 H 03/11/23 03:38 36.6 C 65 16 136/61 Pulse Ox O2 Del Method 03/11/23 11:33 94 Room Air 03/11/23 08:00 03/11/23 07:38 96 Room Air 03/11/23 03:38 95 Room Air
--- NOTE | 2023-03-11 13:44 | Discharge Summary ---
Date of Service March 11, 2023 Admission HPI Per Admitting Provider 78 yo male with PMHx of vitamin D deficiency, CKD, BPH w/ LUTS, DM2, HLD, HTN, and carotid artery occlusion s/p ?TCAR presents with bilateral lower extremity weakness. 2 weeks ago patient had sudden onset low back pain and bilateral lower extremity weakness which has progressively worsened. Denies injury. He has been using a cane to help with ambulation otherwise previous to symptoms he was walking on his own. He also does note a left foot drop as of yesterday. He does note he had an episode of foot drop a while back with quick resolution which was attributed to possible TIA. Otherwise he denies headache, fevers, chills, fatigue, chest pain, shortness of breath, abdominal pain, nausea, vomiting, diarrhea, dysuria, extremity numbness/tingling. No bladder or bowel incontinence. He denies any known tick bites but does live near the [facility]. Principal Diagnosis Severe lumbar stenosis with bilateral lower extremity weakness, suspected acute Lyme disease Discharge Exam General-alert and oriented x3, no fevers, no chills HEENT-head atraumatic and normocephalic, pupils equal and reactive to light, extraocular muscles intact Neck-no lymphadenopathy or thyromegaly, trachea midline Chest-clear to auscultation. No rales, wheezing or rhonchi Cardiac-regular rate and rhythm, normal S1 and S2 Abdomen-normal bowel sounds, nontender, no hepatosplenomegaly Extremities-no cyanosis, clubbing, or edema Neuro-cranial nerves II through XII intact, motor and sensory function within normal limits, strength symmetrical 5/5, no focal deficits Psych-normal affect, normal mood Discharge Data Allergies Allergy/AdvReac Type Severity Reaction Status Date / Time bee venom protein (honey bee) Allergy Severe ANAPHYLAXIS Verified 02/18/23 11:31 Consultations 03/10/23 20:31 ED Decision to Admit Stat 03/10/23 21:27 Consult Orthopedic Spine Surgery Routine 03/11/23 11:08 Consult Pain Management Routine Ordered Studies 03/10/23 16:19 MRI Lumbar Spine [MR lumbar spine wo con] Stat Hospital Course (1) Central stenosis of spinal canal: Lumbar spine stenosis seen on imaging. Appreciate consultation by Dr. Cote. The patient has opted for a trial of injection therapy first before surgery is attempted. He was treated with parenteral steroids while hospitalized and will continue a tapering dose of oral prednisone at discharge. He will follow-up with orthopedic spine surgery in the office in several weeks (2) Positive Lyme disease serology: IgM is positive. The patient has no known tick bites however. Will treat with doxycycline 100 mg twice a day for 4 weeks as a precaution (3) Chronic kidney disease: Stable. Monitor intake and output. Serial labs (4) Type 2 diabetes mellitus: ADA diet. Sliding scale coverage. Continue usual home meds (5) Essential hypertension: Stable. Continue current medical manage Plan The patient requests discharge to home today, March 11. He will continue prednisone in a tapering dose fashion along with doxycycline 100 mg twice a day. Will follow-up in the office with orthopedic spine surgery for further management. Total Time Total Time Spent Total Time Spent (In Minutes): 45-minute Discharge Plan Discharge Items Patient Disposition: Home - Self-Care Reason For Visit: BILATERAL LEG WEAKNESS Discharge Diagnosis: Lumbar stenosis with bilateral leg weakness, possible acute Lyme disease Activity: Resume your previous activity Non-emergency contact: Primary Care Provider Call non-emergency contact if: your symptoms worsen Follow-up/Referrals: Vanessa Jacobs MD [Primary Care Provider] - Diet: Carb Consistent or DM2 and Heart Healthy Addtl Attending Provider Instructions: Take prednisone in a tapering dose fashion as directed. Take doxycycline for [address] Cote in his office as directed Pending Studies at Discharge: No Stand-Alone Forms: My [facility], Smoking Cessation Medications and DC Order Prescriptions: New doxycycline hyclate 100 mg Capsule 100 mg PO BID Qty: 56 0RF prednisone 10 mg tablet See Rx Instructions .ROUTE .COMPLEX Qty: 12 0RF Rx Instructions: 10 mg orally 3 times a day for 2 days, then 10 mg twice a day for 2 days, then 10 mg once a day for 2 days, then stop Continued epinephrine [EpiPen 2-Evens] 0.3 mg/0.3 mL auto-injector 0.3 mg IM ONCE PRN (Reason: anaphylaxis) losartan 100 mg tablet 100 mg PO QAM atorvastatin 40 mg tablet 40 mg PO QPM gabapentin 300 mg capsule 300 mg PO TID Rx Instructions: taking 600 mg daily aspirin 81 mg tablet,chewable 81 mg PO QAM ibuprofen [Advil] 200 mg tablet 600 mg PO Q6H PRN (Reason: Pain) fenofibrate nanocrystallized 145 mg tablet 145 mg PO PM Farxiga 10 mg tablet 10 mg PO QAM amlodipine 2.5 mg tablet 2.5 mg PO PM Discharge Orders: Discharge Order (Routine); Ordered 03/11/23 Ordered By: Jhony Jessica Admission Data Admit Date/Time: 03/10/23 21:25 Attending Provider: Jhony Jessica Admit Provider: Gilberto Catalan Primary Care Provider: Vanessa Jacobs Other Providers: Burke Cote; Smooth Doyle; Dora Henderson Coding Level of Care Code 86221 INP/OBS DISCH >30 MIN Diagnoses Central stenosis of spinal canal M48.00 Positive Lyme disease serology R76.8 Chronic kidney disease N18.9 Type 2 diabetes mellitus E11.9 Essential hypertension I10
[2023-03-11] MEDS ORDERED: DOXYCYCLINE HYCLATE 100 MG CAP PO SCH (21:00)
[2023-03-11] MEDS ORDERED: FENOFIBRATE NANOCRYSTALLIZED 145 MG TABLET PO SCH (21:00)
[2023-03-11] MEDS ORDERED: ATORVASTATIN 40 MG TAB PO SCH (21:00)
[2023-03-11] MEDS ORDERED: amLODIPine BESYLATE 5 MG TAB PO SCH (21:00)
[2023-03-12 14:27] LABS: 18KDIGG Band REACTIVE; 23KDIGG Band REACTIVE; 23KDIGM Band REACTIVE; 28KDIGG Band NON-REACTIVE; 30KDIGG Band NON-REACTIVE; 39KDIGG Band REACTIVE; 39KDIGM Band REACTIVE; 41KDIGG Band REACTIVE; 41KDIGM Band REACTIVE; 45KDIGG Band NON-REACTIVE; 58KDIGG Band NON-REACTIVE; 66KDIGG Band NON-REACTIVE; 93KDIGG Band NON-REACTIVE; Lyme Antibodies, WB IgG NEGATIVE (NEGATIVE); Lyme Antibodies, WB IgM POSITIVE (NEGATIVE)
--- NOTE | 2023-03-12 15:04 | Communication Note ---
Date of Service: March 12, 2023 Pt was d/c prior to being seen by pain mgt
--- NOTE | 2023-03-12 19:57 | Billing Data ---
Date of Service March 12, 2023 Coding Level of Care Code 98155 INT INP/OBS CARE
--- NOTE | 2023-03-12 20:01 | Electrocardiogram Report ---
Test Reason : Blood Pressure : / mmHG Vent. Rate : 068 BPM Atrial Rate : 068 BPM P-R Int : 248 ms QRS Dur : 124 ms QT Int : 408 ms P-R-T Axes : 059 060 063 degrees QTc Int : 433 ms Sinus rhythm with 1st degree A-V block Non-specific intra-ventricular conduction delay Borderline ECG No previous ECGs available Confirmed by Hu Lenz ([id number]) on 03/12/2023 8:01:07 PM Referred By: REFERRED SELF Confirmed By:Gustabo Lenz
[2023-03-14 07:58] LABS: Babesia microti DNA Not Detected (Not Detected)
== END 2023-03-11 14:50 | disposition home or self-care (01) | DRG 868 ==
LOC: ED 15:53 → SUATTDRO 21:25 → EDINP 21:25 → 2W 03-11 00:08
DX: M21.372 Foot drop, left foot; I25.10 Atherosclerotic heart disease of native coronary artery without angina pectoris; A69.20 Lyme disease, unspecified; Z91.030 Bee allergy status; E78.5 Hyperlipidemia, unspecified; I12.9 Hypertensive chronic kidney disease with stage 1 through stage 4 chronic kidney disease, or unspecified chronic kidney disease; Z79.84 Long term (current) use of oral hypoglycemic drugs; D63.1 Anemia in chronic kidney disease; M48.061 Spinal stenosis, lumbar region without neurogenic claudication; E11.22 Type 2 diabetes mellitus with diabetic chronic kidney disease; N18.31 Chronic kidney disease, stage 3a; R53.1 Weakness; F17.290 Nicotine dependence, other tobacco product, uncomplicated; N17.9 Acute kidney failure, unspecified; Z79.82 Long term (current) use of aspirin; E11.51 Type 2 diabetes mellitus with diabetic peripheral angiopathy without gangrene; E11.40 Type 2 diabetes mellitus with diabetic neuropathy, unspecified; Z79.899 Other long term (current) drug therapy

== ENCOUNTER 2023-04-06 10:29 | Inpatient (IN) ==
--- NOTE | 2023-04-01 12:00 | Anesthesiology Consultation ---
Date of Service April 01, 2023 Assessment & Plan (1) Encounter for pre-operative examination: Chart Review Chart Review: Pending: Refer to Additional Notes / Consult section (pending most recent PCP note, most recent cardio note with any updated cardiac testing, most recent vascular note with vascular studies ) and Patient NOT seen in Pre Admission Testing - Please obtain most recent PCP note (seen by Dr. Vanessa Jacobs last week) - Please obtain most recent cardio note ([facility]) along with most recent stress test - Did call [facility] ([phone]) to get most office note (last seen September 2022), carotid imaging, AAA imaging (office will be sending over) - Check BSG AM DOS -Infectious Disease screening: Per PAT nursing assessment on 04/01/23. No known infectious disease contacts in past 10 days or current infectious disease symptoms. No recent travel outside the country. History Surgery Operation Date: 04/07/23 12:25 Proposed Procedures p L2-S1 Decompression and Fusion Spinal cord Monitoring - Burke Cote, Height/Weight Height: 5 ft 10 in Weight: 77.111 kg Allergies Allergy/AdvReac Type Severity Reaction Status Date / Time bee venom protein (honey bee) Allergy Severe ANAPHYLAXIS Verified 04/01/23 11:17 Medications Home Medications Medication Instructions Recorded Confirmed Last Taken atorvastatin 40 mg tablet 40 mg PO QPM 12/07/19 04/01/23 Unknown epinephrine 0.3 mg/0.3 mL 0.3 mg IM ONCE PRN anaphylaxis 12/07/19 04/01/23 Unknown injection, auto-injector (EpiPen 2-Evens) losartan 100 mg tablet 100 mg PO QAM 12/07/19 04/01/23 03/10/23 aspirin 81 mg chewable tablet 81 mg PO QAM 03/01/20 04/01/23 03/10/23 gabapentin 300 mg capsule 300 mg PO BID 09/03/20 04/01/23 03/10/23 fenofibrate nanocrystallized 145 145 mg PO PM 09/03/22 04/01/23 Unknown mg tablet amlodipine 2.5 mg tablet 2.5 mg PO PM 03/10/23 04/01/23 Unknown dapagliflozin propanediol 10 mg 10 mg PO QAM 03/10/23 04/01/23 03/10/23 tablet (Farxiga) doxycycline hyclate 100 mg capsule 100 mg PO BID #56 caps 03/11/23 04/01/23 Unknown cholecalciferol (vitamin D3) 50 50 mcg PO DAILY 04/01/23 04/01/23 Unknown mcg (2,000 unit) capsule (Vitamin D3) Past Medical History Medical History (Updated 04/01/23 @ 12:09 by Shirley Flores PA-C) BPH with obstruction/lower urinary tract symptoms Carotid artery disease s/p right CEA - 2017 Cervical radiculopathy Chronic kidney disease Dyslipidemia Essential hypertension History of COVID-summer- no hosp; resolved Hx of aortic aneurysm s/p repair 2003 Hx of basal cell carcinoma Lyme disease Diagnosed during 03/10/23 [facility] admission- being treated with Doxy x 4 weeks Peripheral vascular disease s/p right LE stent Type 2 diabetes mellitus Past Surgical History Surgical History H/O wrist surgery History of carotid endarterectomy right History of intravascular stent placement right calf Hx of colonoscopy S/P AAA repair Social History Smoking Status: Current every day smoker Smoking cigarettes per day: vapes daily- advised Do You Dip or Chew Tobacco: No Hx Alcohol Use: No Hx Substance Use: No substance use type: does not use Lab Results Anesthesia Preop Results Results Anesthesia Widget: Na 139 mmol/L (136-145) 03/11/23 K 4.6 mmol/L (3.5-5.1) 03/11/23 Cl 107 mmol/L (98-107) 03/11/23 CO2 25 mmol/L (21-32) 03/11/23 BUN 33 mg/dl (6-23) H 03/11/23 Creat 1.30 mg/dl (0.6-1.4) 03/11/23 Glucose Level 152 mg/dl (70-99(Fasting)) H 03/11/23 PT 11.4 Seconds (9.0-12.0) 03/11/23 PTT 28 Seconds (21-31) 03/11/23 INR 1.0 (0.9-1.1) 03/11/23 TSH 3.463 uIu/ml (0.300-4.500) 03/10/23 Urine Color Yellow 03/10/23 Urine Appearance Clear (Clear) 03/10/23 Urine pH 5.5 (4.5-7.5) 03/10/23 Urine Specific [place] 1.018 (1.000-1.030) 03/10/23 Urine Protein 2+ (Negative) H 03/10/23 Urine Glucose (UA) 3+ (Negative) H 03/10/23 Urine Ketones Negative (Negative) 03/10/23 Urine Blood Negative (Negative) 03/10/23 Urine Nitrite Negative (Negative) 03/10/23 Urine Bilirubin Negative (Negative) 03/10/23 Urine Urobilinogen Negative (Negative) 03/10/23 Urine Leukocyte Esterase Negative (Negative) 03/10/23 Urine WBC (Auto) 0 /hpf (0-5) 03/10/23 Urine RBC (Auto) 0-4 /hpf (0-4) 03/10/23 Urine Hyaline Casts (Auto) 0 /lpf (0-5) 03/10/23 Urine Epithelial Cells (Auto) 0-5 /lpf (0-5) 03/10/23 Urine Bacteria (Auto) Negative (Negative) 03/10/23 Testing Laboratory Results 03/16/23= WBC: 5.8 H/H: 13.5/39.9 PLATELETS: 310 Electrocardiogram Date: 03/11/23 SR with 1st degree AVB at 68bpm Nonspecific intra-ventricular conduction delay Chest X-Ray Date: 03/11/23 Findings: + NAD Echocardiogram Date: 03/10/23 EF: 55% LV Function: normal RWMA: + none Other Findings: + LVH (mild) and + diastolic dysfunction (Grade I )
[~2023-04-06 10:29] MED LIST: DEXAMETHASONE SOD INJ 4 MG/ML VIAL ONE; HYDROmorphone INJ 2 MG/ML SYR/VIAL ONE; LIDOCAINE 2% 2 ML VIAL/AMP(20MG/ML) INFIL ONE; MIDAZOLAM HCL 1 MG/ML 2ML VIAL ONE; ONDANSETRON INJ 2 MG/ML 2 ML VIAL ONE; PROPOFOL IV EMULSION 10 MG/ML 20 ML VIAL IV ONE; ROCURONIUM BROMIDE 10 MG/ML 5 ML VIAL IV ONE; fentaNYL citrate PF 100 MCG/2 ML VIAL ONE
[2023-04-06] MEDS ORDERED: fentaNYL citrate PF 100 MCG/2 ML VIAL IV PRN (11:01)
[2023-04-06] MEDS ORDERED: ATROPINE SULFATE 0.1 MG/ML 10ML SYR IV PRN (11:01)
[2023-04-06] MEDS ORDERED: ONDANSETRON INJ 2 MG/ML 2 ML VIAL IV PRN (11:01)
[2023-04-06] MEDS ORDERED: ePHEDrine sulfate 50 MG/ML AMP IV PRN (11:01)
[2023-04-06] MEDS ORDERED: HYDROmorphone INJ 1 MG/ML SYRINGE IV PRN ×2 (11:01→17:13)
[2023-04-06] MEDS ORDERED: PROMETHAZINE HCL 6.25 MG in SODIUM CHLORIDE 0.9% 50 ML IV PRN (11:01)
[2023-04-06] MEDS: ACETAMINOPHEN 500 MG TAB PO SCH (11:14)
[2023-04-06] MEDS: LR 15ML/HR IV SCH (11:15)
[2023-04-06] MEDS: LR 60ML/HR IV SCH (11:15)
[2023-04-06] MEDS: CeleBREX 200 MG CAP PO SCH (11:15)
[2023-04-06] MEDS: GABAPENTIN 300 MG CAP PO SCH ×2 (11:15→21:54)
--- NOTE | 2023-04-06 12:13 | History & Physical Bridge Note ---
Date of Service April 06, 2023 History & Physical Bridge Note I have examined the patient, reviewed the History & Physical and in the interval since the performance of the History & Physical I have noted the following changes of clinical significance: no changes noted
--- NOTE | 2023-04-06 12:14 | History & Physical Report ---
Date of Service April 06, 2023 Assessment & Plan (1) Neurogenic claudication due to lumbar spinal stenosis: Plan: L2-S1 decompression and fusion History of Present Illness Chief Complaint: Back and leg pain Primary Care Provider: Vanessa Jacobs MD This is a 78-year-old male presents with chronic persistent back and leg pain after failing since course of nonoperative care is here for surgical invention. Allergies Allergy/AdvReac Type Severity Reaction Status Date / Time bee venom protein (honey bee) Allergy Severe ANAPHYLAXIS Verified 04/06/23 10:47 Home Medications Medication Instructions Recorded Confirmed Type atorvastatin 40 mg tablet 40 mg PO QPM 12/07/19 04/06/23 History epinephrine 0.3 mg/0.3 mL 0.3 mg IM ONCE PRN anaphylaxis 12/07/19 04/06/23 History injection, auto-injector (EpiPen 2-Evens) losartan 100 mg tablet 100 mg PO QAM 12/07/19 04/06/23 History aspirin 81 mg chewable tablet 81 mg PO QAM 03/01/20 04/06/23 History gabapentin 300 mg capsule 300 mg PO BID 09/03/20 04/06/23 History fenofibrate nanocrystallized 145 145 mg PO PM 09/03/22 04/06/23 History mg tablet amlodipine 2.5 mg tablet 2.5 mg PO PM 03/10/23 04/06/23 History dapagliflozin propanediol 10 mg 10 mg PO QAM 03/10/23 04/06/23 History tablet (Farxiga) doxycycline hyclate 100 mg capsule 100 mg PO BID #56 caps 03/11/23 04/06/23 Rx cholecalciferol (vitamin D3) 50 50 mcg PO DAILY 04/01/23 04/06/23 History mcg (2,000 unit) capsule (Vitamin D3) Past Med/Surg History Medical History (Updated 04/06/23 @ 12:13 by Burke Cote DO) Carotid artery disease s/p right CEA - 2016 Hx of aortic aneurysm s/p repair 2003 Hx of basal cell carcinoma History of COVID-summer- no hosp; resolved Lyme disease Diagnosed during 03/10/23 [facility] admission- being treated with Doxy x 4 weeks BPH with obstruction/lower urinary tract symptoms Chronic kidney disease Essential hypertension Cervical radiculopathy Dyslipidemia Peripheral vascular disease s/p right LE stent Type 2 diabetes mellitus Surgical History Hx of colonoscopy History of intravascular stent placement right calf H/O wrist surgery History of carotid endarterectomy right S/P AAA repair Social History Smoking Status: Current every day smoker Tobacco Type: E-cigarettes / Vaping Cigarettes Per Day: vapes daily- advised; Second Hand Exposure: No; Do You Dip or Chew Tobacco: No; Tobacco Cessation Education Requested by Patient: No Hx Alcohol Use: No Hx Substance Use: No Preferred Language: Guyanese Communication Ability: Effective Electronic Engraver Required: No Beliefs That Will Affect Care: None marital status: Current Living Situation: Family current occupational status: retired 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
[2023-04-06] MEDS ORDERED: ALBUMIN HUMAN 5% 12.5 GM/250 ML VIAL IV ONE (12:30)
[2023-04-06] MEDS ORDERED: KETAMINE HCL 10MG/ML SYR ONE (12:30)
[2023-04-06] MEDS: ceFAZolin 2000MG 2,000 MG/15 ML SYR IV SCH ×2 (12:53→21:52)
[2023-04-06] MEDS: ceFAZolin 330 MG/ML 1 GM VIAL ONE (13:22)
[2023-04-06] MEDS: BUPIVACAINE/EPINEPHRINE 0.5% MPF 1:200,000 30 ML VIAL ONE (13:22)
[2023-04-06] MEDS ORDERED: ROCURONIUM BROMIDE 10 MG/ML 5 ML VIAL IV ONE ×2 (13:24→15:17)
[2023-04-06] MEDS: FLOSEAL HEMOSTATIC MATRIX 10ML TOP ONE (15:30)
[2023-04-06] MEDS ORDERED: SUGAMMADEX SODIUM 200 MG/2 ML VIAL IV ONE ×2 (15:31→15:43)
[2023-04-06] MEDS ORDERED: ONDANSETRON INJ 2 MG/ML 2 ML VIAL ONE (15:32)
--- NOTE | 2023-04-06 15:45 | Operative Report ---
Post Operative Report Pre & Post Diagnosis Operation Date: 04/06/23 12:10 Pre-Op Diagnosis: Lumbar Stenosis with Neurogenic Claudication Post-Op Diagnosis: Lumbar Stenosis with Neurogenic Claudication I identified the patient and participated in the time-out.: Yes Procedure Operation Date: 04/06/23 12:10 Actual Procedures #1 lumbar decompression bilaterally facetectomies and foraminotomies L2-3, L3- L4, L4-5 and L5-S1. #2 posterior spinal fusion L2-S1. #3 placed posterior segmental instrumentation L2-S1. #4 interbody fusion L3-L4, L4-5 and L5-S1. #6 placement spiral cage 13 x 26 mm at L3-L4, 14 x 26 mm at L4-5 and 12 x 26 mm at L5-S1. #6 placement locally harvested morselized autograft and posterior gutters. #7 placement of Morpheus bone graft in the interbody space and infuse collagen sponge combined with Koros in the posterior lateral gutters. Surgeon Burke Cote, Cigar Roller Noelle Olivas Estimated Blood Loss 350 Findings Consistent with Post-Op Diagnosis Specimens None Indications This is a 78-year-old male who presents above-mentioned diagnosis of failed course of nonoperative care is here for surgical invention Description of Procedure Patient was met with identified informed consent obtained. Patient was then taken to the operative suite underwent patient placed in a prone position on the [place] table top Mike frame. All bony prominences well-padded eyes inspected to ensure no external precipice spine. This point the lumbar spine was prepped and draped in a sterile fashion. Sharp dissection with the assistance of Bovie cautery form down to and exposing the lamina and transverse processes of L2-L3 L4-5 and the sacral ala bilaterally. From a caudal cephalad fashion complete laminectomy of L5 L4 L3 and L2 was performed including bilateral male facetectomies and foraminotomies addressing severe spinal stenosis. Pedicle screws were then placed in L3-S1 bilaterally with the assistance of fluoroscopy in the pelvis has ervin contoured and placed. Bilateral transforaminal approach on the left complete discectomy L5-S1 was performed endplates guarded to subcortical bleeding bone and a 12 x 26 mm spiral cage filled with Morpheus bone graft tapped in position. Then proceeded L4-L5 and by way of transforaminal approach on the left complete discectomy performed endplates guarded to subcortical bleeding bone and a 14 x 26 mm Spira cage filled with Morpheus bone graft apposition. Lastly proceeded to L3-L4 by way of a transforaminal approach the left complete discectomy performed endplates guarded to subcortical mean bone and a 13 x 26 mm Spira cage filled with Morpheus bone graft tapped position. The rods were then compressed locked in final position bilaterally. The transverse processes of L2-L3 L4-5 and the sacral ala burred to subcortical bleeding bone. Infuse collagen sponge, mass graft locally harvested morselized autograft was placed in posterior gutters. 15 round DANIEL inserted. The incision was then closed with 1 Vicryl fascia 2-0 Vicryl subcutaneously and 4 Monocryl for final skin closure. Steri-Strips sterile dressing placed. Patient waken taken to PACU in stable condition. Please note spinal cord monitoring was utilized at the procedure no changes noted. Lastly Noelle Olivas was present at the entire surgery for the patient position complex portion of the surgery and final skin closure. I attest to the content of the Intraoperative Record and any orders documented therein. Any exceptions are noted below.
--- NOTE | 2023-04-06 15:56 | Fluoroscopy Report ---
FL lumbar spine 2-3V CLINICAL HISTORY: L2 - S1 DECOMPRESSION/FUSION/SPINAL CORD MONITORING COMPARISON STUDY: None. FLUOROSCOPY TIME: 44 seconds FLUOROSCOPY IMAGES: 4 Ka,r: 25.7 mGy FINDINGS: Posterior decompression fusion from L2 through S1 with pedicle screws and rods. The hardwar e appears intact. Disc spacers are placed. IMPRESSION: Fluoroscopic assistance as above. ACT 112: Negative or not required by law. Electronically signed by: Adan Trammell M.D. 04/06/2023 3:55 PM
[2023-04-06] MEDS ORDERED: METOCLOPRAMIDE HCL INJ 5 MG/ML 2 ML VIAL IV PRN (17:13)
[2023-04-06] MEDS ORDERED: LORazepam 0.5 MG TAB PO PRN (17:13)
[2023-04-06] MEDS ORDERED: DO NOT ADMINISTER FLU VACCINE PRN (17:13)
[2023-04-06] MEDS ORDERED: ONDANSETRON 4 MG OD TAB PO PRN (17:13)
[2023-04-06] MEDS ORDERED: bisacodyL 10 MG SUPP PR PRN (17:13)
[2023-04-06] MEDS ORDERED: FAMOTIDINE 20 MG TAB PO PRN (17:13)
[2023-04-06] MEDS ORDERED: ACETAMINOPHEN 1,000 MG/100 ML VIAL IV PRN (17:13)
[2023-04-06] MEDS ORDERED: NALOXONE HCL 0.4 MG/1 ML VIAL/CARP IV PRN (17:13)
[2023-04-06] MEDS ORDERED: MAGNESIUM HYDROXIDE SUSP 30 ML UDC PO PRN (17:13)
[2023-04-06] MEDS ORDERED: SOD PHOSPHATE/SOD BIPHOSPHATE ENEMA 132 ML BTL PR PRN (17:13)
[2023-04-06] MEDS ORDERED: hydrOXYzine HCl 25 MG TAB PO PRN (17:13)
[2023-04-06] MEDS ORDERED: ALUMINUM/MAGNESIUM SUSP 30 ML UDC PO PRN (17:13)
[2023-04-06] MEDS ORDERED: LORazepam 0.5 MG in SYRINGE 0.25 ML IV PRN (17:13)
[2023-04-06] MEDS ORDERED: PROMETHAZINE HCL 12.5 MG in SODIUM CHLORIDE 0.9% 50 ML IV PRN (17:13)
[2023-04-06] MEDS ORDERED: DO NOT ADMINISTER PNEUMOCOCCAL VACCINE PRN (17:13)
[2023-04-06] MEDS ORDERED: EPINEPHrine INJ 1 MG/ML AMP IM PRN (17:18)
[2023-04-06] MEDS: SODIUM CHLORIDE 0.9% 1,000 ML IV SCH (18:02)
[2023-04-06] MEDS: traMADol HCL 50 MG TABLET PO PRN (18:44)
[2023-04-06] MEDS: ONDANSETRON INJ 2 MG/ML 2 ML VIAL IV PRN (18:44)
[2023-04-06] MEDS: oxyCODONE HCL IR 5 MG TAB (IMMEDIATE RELEASE) PO PRN (19:38)
[2023-04-06] MEDS: diphenhydrAMINE Capsule 25 MG CAP PO PRN (21:51)
[2023-04-06] MEDS: ATORVASTATIN 40 MG TAB PO SCH (21:53)
[2023-04-06] MEDS: DOCUSATE SODIUM/SENNA 50/8.6MG TAB PO SCH (21:53)
[2023-04-06] MEDS: amLODIPine BESYLATE 5 MG TAB PO SCH (21:53)
[2023-04-06] MEDS: DOXYCYCLINE HYCLATE 100 MG CAP PO SCH (21:54)
[2023-04-07] MEDS: LACTATED RINGER'S 1,000 ML IV SCH (03:37)
[2023-04-07] MEDS: POLYETHYLENE (MIRALAX) 17 GM PACK PO SCH (05:45)
[2023-04-07] MEDS: HYDROmorphone INJ 0.5 MG/0.5 ML SYR IV PRN (07:46)
[2023-04-07 07:50] LABS: Basophils # (auto) 0.06 K/uL (0.00-0.20); Basophils % (auto) 0.7 %; Eosinophils # (auto) 0.01 K/uL (0.00-0.50); Eosinophils % (auto) 0.1 %; Hematocrit (blood only) 27.7 % (42.0-52.0); Immature Granulocytes % (auto) 1.2 %; Lymphocytes % (auto) 11.7 %; Mean Corpuscular Hemoglobin 36.4 pg (25.0-34.0); Mean Corpuscular Hgb Conc 32.5 g/dL (32.0-36.0); Mean Corpuscular Volume 112.1 fL (80.0-100.0); Monocytes % (auto) 21.1 %; Neutrophils # (auto) 5.56 K/uL (1.40-6.50); Neutrophils % (auto) 65.2 %; Platelet Count 244 K/uL (130-400); RDW Coefficient of Variation 13.5 % (11.5-14.5); RDW Standard Deviation 55.9 fL (36.4-46.3); Red Blood Count 2.47 M/uL (4.70-6.10); White Blood Count 8.53 K/ul (4.8-10.8)
[2023-04-07 08:16] LABS: Calcium 8.7 mg/dl (8.6-10.3); Creatinine Clr Calc Pharmacy 51.3 ml/min; Est GFR (African American) 65.2 ml/min; Est GFR (Non-African American) 56.3 ml/min; Potassium 3.9 mmol/L (3.5-5.1)
[2023-04-07 08:22] LABS: Macrocytosis Present; Polychromasia 1+
[2023-04-07] MEDS: ASPIRIN 81 MG CHEW PO SCH (08:22)
[2023-04-07] MEDS: LOSARTAN POTASSIUM 50 MG TAB PO SCH (08:25)
[2023-04-07] MEDS: CHOLECALCIFEROL 25 MCG (1000 UNITS) TAB PO SCH (08:26)
[2023-04-07] MEDS: dexAMETHasone 6 MG in SYRINGE 0 ML IV SCH (08:30)
--- NOTE | 2023-04-07 08:47 | Hospitalist Consultation ---
Date of Consultation April 07, 2023 Assessment & Plan (1) Neurogenic claudication due to lumbar spinal stenosis: s/p #1 lumbar decompression bilaterally facetectomies and foraminotomies L2-3, L3-L4, L4-5 and L5-S1. #2 posterior spinal fusion L2-S1. #3 placed posterior segmental instrumentation L2-S1. #4 interbody fusion L3-L4, L4-5 and L5-S1. #6 placement spiral cage 13 x 26 mm at L3-L4, 14 x 26 mm at L4-5 and 12 x 26 mm at L5-S1. #6 placement locally harvested morselized autograft and posterior gu tters. #7 placement of Morpheus bone graft in the interbody space and infuse collagen sponge combined with Koros in the posterior lateral gutters. with Dr Cote 04/06 WBC wnl, afebrile Hgb 13.5--> 9.0, acute blood loss in setting of surgery as well as dilutional from IVF. Asymptomatic, no CP/SOB/lightheadedness reported EBL 350cc, DANIEL output 375cc MCV >100, will also add B12/folate to AM labs B12 not deficient, but folate LOW -- PO replacement ordered and will continue at oh Bowel regimen/pain control/PT/OT per primary service DVT: SCDs, aj alcaraz. Remains on baby aspirin daily Monitor labs in AM (2) Positive Lyme disease serology: as above, continues on doxy BID. no issues w/ reflux reported. to complete 4 week course (3) Essential hypertension: BP stable at 137/68 Continues on losartan 100mg, amlodipine 2.5mg continues on fenofibrate/atorvastatin for HLD (4) Chronic kidney disease: Renal function appears around baseline, continues on home meds renal dose meds/avoid nephrotoxins as able (5) Type 2 diabetes mellitus: Last a1c in system OLD 7,1, only on darxiga 10mg daily pharmacy consulted for glycemic management while on dexamethasone per primary service however POCs acceptable Plan Thank you for allowing hospitalist service to participate in the care of Mr Conde. Hospitalist service will follow along in am. Please call with any questions/concerns Supervising Physician Co-Signing Physician Notes The patient was seen by me. The chart was reviewed. Case discussed with LISA Padron. Agree with assessment and plan History of Present Illness Reason for Consultation: medical management Requesting Physician: Dr Cote Attending Physician: Burke Cote, DO History of Present Illness 78yo male with PMHx significant for HTN, DM II, CKD, recent admission for lumbar spinal stenosis and subsequent + Lyme testing and Doxycycline as precaution presented for lumbar decompression and fusion with Dr Cote on 04/06. EBL 350cc Patient evaluated this morning, just finished working with OT. Pain to back present, just medicated for pain. Discussed continued pain regimen w/ bowel regimen. +BS on exam but denies passing gas. No significant abdominal pain at present. Blackwell in place w/ clear yellow urine, to be removed this morning after done working with therapy. Reports he is likely going to be here another 2 days or so, just seen by Dr Cote. Hx of smoking but quit ~ a year ago, several times. Discussed hgb - no CP/SOB lightheaded reported. Folate low and replacement ordered. Good appetite. Questions/concerns addressed at this time. Allergies Allergy/AdvReac Type Severity Reaction Status Date / Time bee venom protein (honey bee) Allergy Severe ANAPHYLAXIS Verified 04/06/23 10:47 Home Medications Medication Instructions Recorded Confirmed Type atorvastatin 40 mg tablet 40 mg PO QPM 12/07/19 04/06/23 History epinephrine 0.3 mg/0.3 mL 0.3 mg IM ONCE PRN anaphylaxis 12/07/19 04/06/23 History injection, auto-injector (EpiPen 2-Evens) losartan 100 mg tablet 100 mg PO QAM 12/07/19 04/06/23 History aspirin 81 mg chewable tablet 81 mg PO QAM 03/01/20 04/06/23 History gabapentin 300 mg capsule 300 mg PO BID 09/03/20 04/06/23 History fenofibrate nanocrystallized 145 145 mg PO PM 09/03/22 04/06/23 History mg tablet amlodipine 2.5 mg tablet 2.5 mg PO PM 03/10/23 04/06/23 History dapagliflozin propanediol 10 mg 10 mg PO QAM 03/10/23 04/06/23 History tablet (Farxiga) doxycycline hyclate 100 mg capsule 100 mg PO BID #56 caps 03/11/23 04/06/23 Rx cholecalciferol (vitamin D3) 50 50 mcg PO DAILY 04/01/23 04/06/23 History mcg (2,000 unit) capsule (Vitamin D3) oxycodone 5 mg tablet 5 mg PO Q6H PRN pain #30 tabs 04/07/23 Rx tramadol 50 mg tablet 50 mg PO Q6H PRN pain, moderate 04/07/23 Rx #30 tabs Patient History Medical History Chronic kidney disease Essential hypertension Type 2 diabetes mellitus Carotid artery disease s/p right CEA - 2016 Hx of aortic aneurysm s/p repair 2003 Hx of basal cell carcinoma History of COVID-summer- no hosp; resolved Lyme disease Diagnosed during 03/10/23 [facility] admission- being treated with Doxy x 4 weeks BPH with obstruction/lower urinary tract symptoms Cervical radiculopathy Dyslipidemia Peripheral vascular disease s/p right LE stent Surgical History Hx of colonoscopy History of intravascular stent placement right calf H/O wrist surgery History of carotid endarterectomy right S/P AAA repair Social History (Updated 04/07/23 @ 10:21 by Fela Bach PA-C) Smoking Status: Former smoker Tobacco Type: E-cigarettes / Vaping Cigarettes Per Day: vapes daily- advised; Second Hand Exposure: No; Do You Dip or Chew Tobacco: No; Tobacco Cessation Education Requested by Patient: No Hx Alcohol Use: No Hx Substance Use: No Preferred Language: Mongolian Communication Ability: Effective Human Factors Scientist Required: No Beliefs That Will Affect Care: None marital status: Current Living Situation: Family current occupational status: retired 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 Other Information That Helps Us Care for You: No Feels Safe at Home: Yes Safety Concerns: Feels Safe At This Time Assistive Devices: Glasses, Scooter/Electric Scooter and Walker Physical Exam Physical Exam: General: 78yo male sitting up in chair, mildly uncomfortable with movement but NAD HEENT: atraumatic, normocephalic, mmm, trachea midline Resp: even/unlabored, faint expiratory wheeze posteriorly but no crackles/rales, on room air CV: RRR, no significant m/r/g, no pitting edema/calf tenderness GI: +BS, soft/nontender, slight distension : +blackwell, clear yellow urine draining MSK/Neuro: dressing c/d/i Psych: AOx3, cooperative with exam Results & Data Results & Data Vital Signs (Past 12 Hours) Vital Signs Temp Pulse Resp BP Pulse Ox O2 Del Method O2 Flow Rate 04/07/23 07:49 37.2 C 68 16 137/68 90 Room Air 04/07/23 03:41 36.8 C 73 16 118/48 L 95 Room Air 04/07/23 00:09 36.7 C 71 16 102/50 L 96 Room Air 04/06/23 20:50 36.8 C 80 18 105/54 L 98 Nasal Cannula 2 Laboratory Results 04/07/23 04/07/23 04/06/23 Range/Units 07:28 06:54 20:51 WBC 8.53 (4.8-10.8) K/ul RBC 2.47 L (4.70-6.10) M/uL Hgb 9.0 L (14.0-18.0) g/dl Hct 27.7 L (42.0-52.0) % MCV 112.1 H (80.0-100.0) fL MCH 36.4 H (25.0-34.0) pg MCHC 32.5 (32.0-36.0) g/dL RDW Std Deviation 55.9 H (36.4-46.3) fL RDW Coeff of Germán 13.5 (11.5-14.5) % Plt Count 244 (130-400) K/uL MPV 10.0 (9.4-12.4) fL Immature Gran % (Auto) 1.2 % Neut % (Auto) 65.2 % Lymph % (Auto) 11.7 % [place] % (Auto) 21.1 % Eos % (Auto) 0.1 % Baso % (Auto) 0.7 % Neut # (Auto) 5.56 (1.40-6.50) K/uL Lymph # (Auto) 1.00 L (1.20-3.40) K/uL [place] # (Auto) 1.80 H (0.11-0.59) K/uL Eos # (Auto) 0.01 (0.00-0.50) K/uL Baso # (Auto) 0.06 (0.00-0.20) K/uL Immature Gran # (Auto) 0.10 (0.01-0.20) K/uL Polychromasia 1+ Macrocytosis Present Sodium 138 (136-145) mmol/L Potassium 3.9 (3.5-5.1) mmol/L Chloride 107 (98-107) mmol/L Carbon Dioxide 27 (21-32) mmol/L Anion Gap 4 (3-11) BUN 27 H (6-23) mg/dl Creatinine 1.23 (0.6-1.4) mg/dl Est Cr Clr Drug Dosing 51.3 ml/min Est GFR ( Amer) 65.2 ml/min Est GFR (Non-Af Amer) 56.3 ml/min BUN/Creatinine Ratio 22.0 H (10-20) Glucose 94 (70-99(Fasting)) mg/dl POC Glucose 103 H 185 H (70-99) mg/dl Calcium 8.7 (8.6-10.3) mg/dl Vitamin B12 1040 H (180-914) pg/ml Folate 4.47 L (>5.38) ng/ml TSH 2.326 (0.300-4.500) uIu/ml 04/06/23 04/06/23 04/06/23 Range/Units 18:11 16:07 11:02 WBC (4.8-10.8) K/ul RBC (4.70-6.10) M/uL Hgb (14.0-18.0) g/dl Hct (42.0-52.0) % MCV (80.0-100.0) fL MCH (25.0-34.0) pg MCHC (32.0-36.0) g/dL RDW Std Deviation (36.4-46.3) fL RDW Coeff of Germán (11.5-14.5) % Plt Count (130-400) K/uL MPV (9.4-12.4) fL Immature Gran % (Auto) % Neut % (Auto) % Lymph % (Auto) % [place] % (Auto) % Eos % (Auto) % Baso % (Auto) % Neut # (Auto) (1.40-6.50) K/uL Lymph # (Auto) (1.20-3.40) K/uL [place] # (Auto) (0.11-0.59) K/uL Eos # (Auto) (0.00-0.50) K/uL Baso # (Auto) (0.00-0.20) K/uL Immature Gran # (Auto) (0.01-0.20) K/uL Polychromasia Macrocytosis Sodium (136-145) mmol/L Potassium (3.5-5.1) mmol/L Chloride (98-107) mmol/L Carbon Dioxide (21-32) mmol/L Anion Gap (3-11) BUN (6-23) mg/dl Creatinine (0.6-1.4) mg/dl Est Cr Clr Drug Dosing ml/min Est GFR ( Amer) ml/min Est GFR (Non-Af Amer) ml/min BUN/Creatinine Ratio (10-20) Glucose (70-99(Fasting)) mg/dl POC Glucose 165 H 145 H 112 H (70-99) mg/dl Calcium (8.6-10.3) mg/dl Vitamin B12 (180-914) pg/ml Folate (>5.38) ng/ml TSH (0.300-4.500) uIu/ml Diagnostic Findings Lumbar Spine X-Ray 04/06/23 00:00 FL lumbar spine 2-3V CLINICAL HISTORY: L2 - S1 DECOMPRESSION/FUSION/SPINAL CORD MONITORING COMPARISON STUDY: None. FLUOROSCOPY TIME: 44 seconds FLUOROSCOPY IMAGES: 4 Ka,r: 25.7 mGy FINDINGS: Posterior decompression fusion from L2 through S1 with pedicle screws and rods. The hardware appears intact. Disc spacers are placed. IMPRESSION: Fluoroscopic assistance as above. ACT 112: Negative or not required by law. Electronically signed by: Adan Trammell M.D. 04/06/2023 3:55 PM PG Care Time/CCT Total # of Minutes Spent Total Time Spent with Patient: Total time spent is greater than 50% in coordination of care (as documented) at patient's floor/unit and/or counseling patient: Coding Level of Care Code 07838 IN/OBS CONSULT LVL 3,45M Diagnoses Neurogenic claudication due to lumbar spinal stenosis M48.062 Positive Lyme disease serology R76.8 Essential hypertension I10 Chronic kidney disease N18.9 Type 2 diabetes mellitus E11.9
[2023-04-07] MEDS ORDERED: PHARMACY GLYCEMIC MGMT CONSULT PRN (08:51)
[2023-04-07 10:07] LABS: Folate (Folic Acid),Ser orPlas 4.47 ng/ml (>5.38)
--- NOTE | 2023-04-07 10:17 | Orthopedic Progress Note ---
Date of Service April 07, 2023 Assessment & Plan (1) Neurogenic claudication due to lumbar spinal stenosis: Plan: At this time continue physical therapy monitor his DANIEL output of fluid discharge home in next few days. Admission and Anticipated Discharge Date Admission Date: April 06, 2023 Subjective Back pain controlled leg pain improved. Physical Exam Physical Exam: Patient is in the chair at the bedside. Discussed when to testing. Appears comfortable. Results & Data Vital Signs (Past 12 Hours) Vital Signs Temp Pulse Resp BP Pulse Ox O2 Del Method 04/07/23 07:49 37.2 C 68 16 137/68 90 Room Air 04/07/23 03:41 36.8 C 73 16 118/48 L 95 Room Air 04/07/23 00:09 36.7 C 71 16 102/50 L 96 Room Air Queries Orthopedic Spine Acute Posthemorrhagic Anemia: Yes
[2023-04-07] MEDS: INSULIN ASPART PER UNIT CHARGE SC SCH (12:51)
[2023-04-07] MEDS: FOLIC ACID 1 MG TAB PO SCH (12:53)
--- NOTE | 2023-04-07 14:14 | Pharmacy Report ---
Pharmacy Glycemic Short Note 2 - Date of Service April 07, 2023 - Glycemic Short BSG Results (Last 24 hours): 04/06/23 04/06/23 04/06/23 16:07 18:11 20:51 Glucose POC Glucose 145 H 165 H 185 H 04/07/23 04/07/23 04/07/23 06:54 07:28 11:32 Glucose 94 POC Glucose 103 H 203 H OUTPATIENT ANTIDIABETIC REGIMEN: * Farxiga 10mg PO daily * HbA1c 7.1% (02/20/20), pending 04/08/23 ASSESSMENT: * Shalom is a 78 YOM admitted status post spinal decompression and fusion with a history of type 2 diabetes mellitus. Pharmacy has been consulted for glycemic management while inpatient. * Fasting BSG slightly below goal range this AM, patient is receiving dexamethasone 6mg IV x3 days. Will hold off on basal for now as patient does not seem particularly reactive to steroids (he received IV preoperative steroids and BSGs were acceptable yesterday with no insulin). * Correction factor initiated at a weight based stress of 2 this AM, lunchtime BSG slightly elevated, will add carbohydrate ratio as well at a weight based stress of 2. He has also brought in his home Farxiga and has continued that as well. PLAN FOR INPATIENT GLYCEMIC CONTROL: * Hold outpatient oral diabetes medications * Basal insulin * hold, reassess in AM * Bolus insulin * NovoLog per scale ACHS or Q6hrs while NPO * Goal Range: Low 110 mg/dL - High 140 mg/dL * Correction Factor: 35 mg/dL/unit * Nutritional / Prandial insulin per carb ratio of 1 unit per 12 grams CHO consumed
--- NOTE | 2023-04-07 14:20 | Pharmacy Report ---
Pharmacy Glycemic Short Note 2 - Date of Service April 07, 2023 - Glycemic Short BSG Results (Last 24 hours): 04/06/23 04/06/23 04/06/23 16:07 18:11 20:51 Glucose POC Glucose 145 H 165 H 185 H 04/07/23 04/07/23 04/07/23 06:54 07:28 11:32 Glucose 94 POC Glucose 103 H 203 H OUTPATIENT ANTIDIABETIC REGIMEN: * ASSESSMENT: * PLAN FOR INPATIENT GLYCEMIC CONTROL: * Hold outpatient oral diabetes medications * Basal insulin * Lantus [] units SQ BID * Bolus insulin * NovoLog per scale ACHS or Q6hrs while NPO * Goal Range: Low [] mg/dL - High [] mg/dL * Correction Factor: [] mg/dL/unit * Nutritional / Prandial insulin per carb ratio of 1 unit per [] grams CHO consumed
[2023-04-07] MEDS: ACETAMINOPHEN 500 MG TAB PO PRN (20:29)
[2023-04-08 08:08] LABS: Basophils % (auto) 1.1 %; Eosinophils # (auto) 0.02 K/uL (0.00-0.50); Eosinophils % (auto) 0.2 %; Hematocrit (blood only) 29.5 % (42.0-52.0); Hemoglobin 9.5 g/dl (14.0-18.0); Immature Granulocytes # (auto) 0.29 K/uL (0.01-0.20); Immature Granulocytes % (auto) 3.1 %; Lymphocytes # (auto) 1.34 K/uL (1.20-3.40); Lymphocytes % (auto) 14.4 %; Mean Corpuscular Hemoglobin 36.3 pg (25.0-34.0); Mean Corpuscular Hgb Conc 32.2 g/dL (32.0-36.0); Mean Corpuscular Volume 112.6 fL (80.0-100.0); Monocytes % (auto) 24.7 %; Neutrophils # (auto) 5.26 K/uL (1.40-6.50); Neutrophils % (auto) 56.5 %; Platelet Count 250 K/uL (130-400); RDW Coefficient of Variation 13.5 % (11.5-14.5); RDW Standard Deviation 55.6 fL (36.4-46.3); Red Blood Count 2.62 M/uL (4.70-6.10); White Blood Count 9.31 K/ul (4.8-10.8)
[2023-04-08 08:26] LABS: Calcium 9.2 mg/dl (8.6-10.3); Creatinine Clr Calc Pharmacy 49.3 ml/min; Est GFR (African American) 62.2 ml/min; Est GFR (Non-African American) 53.6 ml/min; Potassium 3.8 mmol/L (3.5-5.1)
--- NOTE | 2023-04-08 08:35 | Hospitalist Progress Note ---
Date of Service April 08, 2023 Assessment & Plan (1) Neurogenic claudication due to lumbar spinal stenosis: Plan: s/p #1 lumbar decompression bilaterally facetectomies and foraminotomies L2-3, L3-L4, L4-5 and L5-S1. #2 posterior spinal fusion L2-S1. #3 placed posterior segmental instrumentation L2-S1. #4 interbody fusion L3-L4, L4-5 and L5-S1. #6 placement spiral cage 13 x 26 mm at L3-L4, 14 x 26 mm at L4-5 and 12 x 26 mm at L5-S1. #6 placement locally harvested morselized autograft and posterior gutters. #7 placement of Morpheus bone graft in the interbody space and infuse collagen sponge combined with Koros in the posterior lateral gutters. with Dr Cote 04/06 WBC wnl, afebrile (low grade temp day prior suspected from atelectasis, incentive spirometry encouraged- nothing since) Hgb 13.5--> 9.0, acute blood loss in setting of surgery as well as dilutional from IVF. Asymptomatic, no CP/SOB/lightheadedness reported -EBL 350cc, DANIEL output 375cc + 185cc Hgb stable at 9.5 on repeat MCV >100, added B12/folate to AM labs -B12 not deficient, but folate LOW -- PO replacement ordered and will continue at nd AGGRESSIVE bowel regimen/ambulation encouraged (+BS on exam/abdomen soft/NT but reporting minimal flatus - to alert to any abdominal pain/worsened distension/etc) Pain control/PT/OT per primary service DVT: SCDs, aj alcaraz. Remains on baby aspirin daily for hx PAD s/p stenting, R CEA in 2017 (2) Positive Lyme disease serology: Plan: as above, continues on doxy BID. no issues w/ reflux reported. to complete 4 week course per prior admission (3) Essential hypertension: Plan: BP stable Continues on losartan 100mg, amlodipine 2.5mg continues on fenofibrate/atorvastatin for HLD --> atorvastatin placed on hold given elevated CK (checked due to prior elevation) (4) Chronic kidney disease: Plan: Renal function appears around baseline, continues on home meds renal dose meds/avoid nephrotoxins as able (5) Type 2 diabetes mellitus: Plan: Last a1c in system OLD 7,1, only on darxiga 10mg daily pharmacy consulted for glycemic management while on dexamethasone per primary service however POCs acceptable (6) Folate deficiency: Plan: checked/low - PO replacement ordered and would continue at discharge (7) Carotid artery disease: Plan: hx R CEA in 2017, also multiple LE stenting procedures for PAD. Had recent cardiac cath pre-op w/ 100% chronic proximal RCA occlusion, 50% proximal LAD stenosis. Medical management recomended -- see note in chart No chest pain reported Remains on baby aspirin statin held due to slightly elevated CK on labs, monitor in AM/resume if normalized Plan Thank you for allowing hospitalist service to participate in the care of Mr Conde. Hospitalist service will follow along in am. Please call with any questions/concerns Admission and Anticipated Discharge Date Admission Date: April 06, 2023 Supervising Physician Co-Signing Physician Notes The patient was not seen by me. The chart was reviewed. Case discussed with LISA Padron. Agree with assessment and plan Subjective Eval this morning, doing well except the pain to back/incision. He reports his legs feel great. Denies passing much gas but does have +BS, abdomen soft. He is going to get up to bathroom and sit a little. Discussed continuing bowel regimen/encouraging ambulation. States seen by ortho PA and expected today as being most painful. No fever/chills, chest pain, shortness of breath. Good appetite. Questions/concerns addressed at this time. Physical Exam Physical Exam: General: 78yo male sitting up in bed, NAD, HEENT: atraumatic, normocephalic, mmm, trachea midline Resp: even/unlabored, no further bibasilar crackles/wheezing, on room air 93%, incentive spirometer at bedside, occasional dry/nonproductive cough CV: RRR, faint systolic murmur, no pitting edema/calf tenderness GI: +BS, soft/nontender, slight distension : blackwell since removed MSK/Neuro: dressing c/d/i to lumbar spine, dorsiflexion/plantar flexion intact, pulses palpable, calves nontender Psych: AOx3, cooperative with exam Results & Data Results & Data Vital Signs (Past 12 Hours) Vital Signs Temp Pulse Resp BP Pulse Ox O2 Del Method 04/08/23 07:34 37.1 C 67 18 121/62 93 Room Air Laboratory Results 0204/08/23 04/07/23 Range/Units 07:38 06:54 20:34 WBC 9.31 (4.8-10.8) K/ul RBC 2.62 L (4.70-6.10) M/uL Hgb 9.5 L (14.0-18.0) g/dl Hct 29.5 L (42.0-52.0) % MCV 112.6 H (80.0-100.0) fL MCH 36.3 H (25.0-34.0) pg MCHC 32.2 (32.0-36.0) g/dL RDW Std Deviation 55.6 H (36.4-46.3) fL RDW Coeff of Germán 13.5 (11.5-14.5) % Plt Count 250 (130-400) K/uL MPV 10.0 (9.4-12.4) fL Immature Gran % (Auto) 3.1 % Neut % (Auto) 56.5 % Lymph % (Auto) 14.4 % [place] % (Auto) 24.7 % Eos % (Auto) 0.2 % Baso % (Auto) 1.1 % Neut # (Auto) 5.26 (1.40-6.50) K/uL Lymph # (Auto) 1.34 (1.20-3.40) K/uL [place] # (Auto) 2.30 H (0.11-0.59) K/uL Eos # (Auto) 0.02 (0.00-0.50) K/uL Baso # (Auto) 0.10 (0.00-0.20) K/uL Immature Gran # (Auto) 0.29 H (0.01-0.20) K/uL Polychromasia 1+ Sodium 138 (136-145) mmol/L Potassium 3.8 (3.5-5.1) mmol/L Chloride 105 (98-107) mmol/L Carbon Dioxide 28 (21-32) mmol/L Anion Gap 5 (3-11) BUN 32 H (6-23) mg/dl Creatinine 1.28 (0.6-1.4) mg/dl Est Cr Clr Drug Dosing 49.3 ml/min Est GFR ( Amer) 62.2 ml/min Est GFR (Non-Af Amer) 53.6 ml/min BUN/Creatinine Ratio 25.0 H (10-20) Glucose 114 H (70-99(Fasting)) mg/dl POC Glucose 122 H 143 H (70-99) mg/dl Estimat Average Glucose 148 mg/dl Hemoglobin A1c 6.8 H (4.5-5.6) % Calcium 9.2 (8.6-10.3) mg/dl Magnesium (1.7-2.4) mg/dl Total Creatine Kinase 293 H (30-223) U/L 04/07/23 04/07/23 04/07/23 Range/Units 16:24 11:32 10:17 WBC (4.8-10.8) K/ul RBC (4.70-6.10) M/uL Hgb (14.0-18.0) g/dl Hct (42.0-52.0) % MCV (80.0-100.0) fL MCH (25.0-34.0) pg MCHC (32.0-36.0) g/dL RDW Std Deviation (36.4-46.3) fL RDW Coeff of Germán (11.5-14.5) % Plt Count (130-400) K/uL MPV (9.4-12.4) fL Immature Gran % (Auto) % Neut % (Auto) % Lymph % (Auto) % [place] % (Auto) % Eos % (Auto) % Baso % (Auto) % Neut # (Auto) (1.40-6.50) K/uL Lymph # (Auto) (1.20-3.40) K/uL [place] # (Auto) (0.11-0.59) K/uL Eos # (Auto) (0.00-0.50) K/uL Baso # (Auto) (0.00-0.20) K/uL Immature Gran # (Auto) (0.01-0.20) K/uL Polychromasia Sodium (136-145) mmol/L Potassium (3.5-5.1) mmol/L Chloride (98-107) mmol/L Carbon Dioxide (21-32) mmol/L Anion Gap (3-11) BUN (6-23) mg/dl Creatinine (0.6-1.4) mg/dl Est Cr Clr Drug Dosing ml/min Est GFR ( Amer) ml/min Est GFR (Non-Af Amer) ml/min BUN/Creatinine Ratio (10-20) Glucose (70-99(Fasting)) mg/dl POC Glucose 154 H 203 H (70-99) mg/dl Estimat Average Glucose mg/dl Hemoglobin A1c (4.5-5.6) % Calcium (8.6-10.3) mg/dl Magnesium 1.8 (1.7-2.4) mg/dl Total Creatine Kinase (30-223) U/L PG Care Time/CCT Total # of Minutes Spent Total Time Spent with Patient: Total time spent is greater than 50% in coordination of care (as documented) at patient's floor/unit and/or counseling patient: Coding Level of Care Code 63933 SUB INP/OBS CARE 3/50MIN Diagnoses Neurogenic claudication due to lumbar spinal stenosis M48.062 Positive Lyme disease serology R76.8 Essential hypertension I10 Chronic kidney disease N18.9 Type 2 diabetes mellitus E11.9 Folate deficiency E53.8 Carotid artery disease I77.9
[2023-04-08 08:42] LABS: Polychromasia 1+
--- NOTE | 2023-04-08 08:54 | Orthopedic Progress Note ---
Date of Service April 08, 2023 Assessment & Plan (1) Neurogenic claudication due to lumbar spinal stenosis: Plan: Shalom is postoperative day 2 status post L2-S1 decompression and fusion. Will continue with physical therapy today. Ambulate ad jesse. Maintain DANIEL drain. Continue with aggressive bowel regimen. Anticipate discharge within the next day or 2 Admission and Anticipated Discharge Date Admission Date: April 06, 2023 Subjective Shalom is postoperative day 2 status post L2-S1 decompression and fusion. Leg symptoms improved. Back pain is controlled. Minimal flatus. No nausea vomiting or abdominal pain. DANIEL drain output last shift was 20 cc. Yesterday in physical therapy ambulating 75 feet. Currently deciding between home versus [facility] for rehab upon discharge Review of Systems Review of Systems: All systems reviewed & are unremarkable except as noted in HPI & below Physical Exam Physical Exam: Laying in bed in no acute distress Alert and oriented x 3 Lumbar dressing is clean dry intact with functioning DANIEL drain Calf soft nontender bilaterally Strength intact bilateral lower extremities Results & Data Vital Signs (Past 12 Hours) Vital Signs Temp Pulse Resp BP Pulse Ox O2 Del Method 04/08/23 07:34 37.1 C 67 18 121/62 93 Room Air Queries Orthopedic Spine Acute Posthemorrhagic Anemia: Yes
[2023-04-08 09:14] LABS: Estimated Average Glucose 148 mg/dl; Hemoglobin A1C 6.8 % (4.5-5.6)
[2023-04-09 07:32] LABS: Basophils # (auto) 0.12 K/uL (0.00-0.20); Basophils % (auto) 1.3 %; Eosinophils # (auto) 0.04 K/uL (0.00-0.50); Eosinophils % (auto) 0.4 %; Hematocrit (blood only) 28.3 % (42.0-52.0); Hemoglobin 9.5 g/dl (14.0-18.0); Immature Granulocytes # (auto) 0.35 K/uL (0.01-0.20); Immature Granulocytes % (auto) 3.8 %; Lymphocytes # (auto) 1.16 K/uL (1.20-3.40); Lymphocytes % (auto) 12.7 %; Mean Corpuscular Hemoglobin 36.8 pg (25.0-34.0); Mean Corpuscular Hgb Conc 33.6 g/dL (32.0-36.0); Mean Corpuscular Volume 109.7 fL (80.0-100.0); Monocytes # (auto) 1.99 K/uL (0.11-0.59); Monocytes % (auto) 21.9 %; Neutrophils # (auto) 5.44 K/uL (1.40-6.50); Neutrophils % (auto) 59.9 %; Platelet Count 268 K/uL (130-400); RDW Coefficient of Variation 13.4 % (11.5-14.5); RDW Standard Deviation 54.4 fL (36.4-46.3); Red Blood Count 2.58 M/uL (4.70-6.10)
[2023-04-09 07:52] LABS: BUN Creatinine Ratio 28.9 (10-20); Calcium 9.4 mg/dl (8.6-10.3); Creatinine Clr Calc Pharmacy 55.3 ml/min; Est GFR (African American) 71.5 ml/min; Est GFR (Non-African American) 61.7 ml/min; Magnesium 2.1 mg/dl (1.7-2.4)
--- NOTE | 2023-04-09 08:46 | Hospitalist Progress Note ---
Date of Service April 09, 2023 Assessment & Plan (1) Neurogenic claudication due to lumbar spinal stenosis: Plan: s/p #1 lumbar decompression bilaterally facetectomies and foraminotomies L2-3, L3-L4, L4-5 and L5-S1. #2 posterior spinal fusion L2-S1. #3 placed posterior segmental instrumentation L2-S1. #4 interbody fusion L3-L4, L4-5 and L5-S1. #6 placement spiral cage 13 x 26 mm at L3-L4, 14 x 26 mm at L4-5 and 12 x 26 mm at L5-S1. #6 placement locally harvested morselized autograft and posterior gutters. #7 placement of Morpheus bone graft in the interbody space and infuse collagen sponge combined with Koros in the posterior lateral gutters. with Dr Cote 04/06 WBC wnl, afebrile (low grade temp post-op suspected from atelectasis, incentive spirometry encouraged- nothing since) Hgb 13.5--> 9.0, acute blood loss in setting of surgery as well as dilutional from IVF. Asymptomatic, no CP/SOB/lightheadedness reported -EBL 350cc, DANIEL output 375cc + 185cc Hgb stable at 9.5 on repeat MCV >100, added B12/folate to AM labs -B12 not deficient, - folate LOW -- PO replacement ordered and should be continued on dc AGGRESSIVE bowel regimen/ambulation encouraged (+BS on exam/abdomen slightly distended but NONTEDNER, increased flatus reported 04/09) -discussed to alert to any abdominal pain/worsened distension/etc Pain control/PT/OT per primary service DVT: SCDs, aj kieran. Remains on baby aspirin daily for hx PAD s/p stenting, R CEA in 2017 PT/OT -- planning for some rehab likely but will continue to see how he does. Reports his daughter would like him to go to rehab. CM following (2) Positive Lyme disease serology: Plan: as above, continues on doxy BID. no issues w/ reflux reported. to complete 4 week course per prior admission (3) Essential hypertension: Plan: On losartan 100mg, amlodipine 2.5mg -- held 04/08 for borderline BP and improved/stable 144/61 w/ stable renal function and was resumed continues on fenofibrate/atorvastatin for HLD --> atorvastatin placed on hold given elevated CK (checked due to prior elevation) Repeat CK wnl, resumed (4) Chronic kidney disease: Plan: Renal function appears around baseline, continues on home meds Cr back to baseline/better than baseline 1.14 and losartan resumed as above renal dose meds/avoid nephrotoxins as able (5) Type 2 diabetes mellitus: Plan: Last a1c in system OLD 7,1, only on darxiga 10mg daily. Repeat 6.8 and improved pharmacy consulted for glycemic management while on dexamethasone per primary service and family brought in [facility] which has been resumed BSGs acceptable (6) Folate deficiency: Plan: checked/low - PO replacement ordered and would continue at discharge (7) Carotid artery disease: Plan: hx R CEA in 2017, also multiple LE stenting procedures for PAD. Had recent cardiac cath pre-op w/ 100% chronic proximal RCA occlusion, 50% proximal LAD stenosis. Medical management recommended -- see note in chart No chest pain reported Remains on baby aspirin statin held due to slightly elevated CK on labs, resumed as normalized Plan Thank you for allowing hospitalist service to participate in the care of Mr Conde. Hospitalist service will chart check in AM. Please call with any questions/concerns Admission and Anticipated Discharge Date Admission Date: April 06, 2023 Supervising Physician Co-Signing Physician Notes The patient was not seen by me. The chart was reviewed. Case discussed with LISA Padron. Agree with assessment and plan Subjective Evaluated this morning. Doing well, pain improved. Saw Dr Cote this morning, seeing about rehab vs home. Leg symptoms improved. Passing flatus but no bowel movement, no abdominal pain. Working on bowel regimen but he reports he may be a little shy and again reports typically is ~4 days at home. NO fever/chills, chest pain, shortness of breath. Questions/concerns addressed at this time. Physical Exam Physical Exam: General: 78yo male sitting up in chair, getting washed up, appears improved, NAD HEENT: atraumatic, normocephalic, mmm, trachea midline Resp: even/unlabored, faint expiratory wheeze, no crackles/rales, on room air CV: RRR, faint systolic murmur, no pitting edema/calf tenderness GI: slight distension but good bowel sounds throughout, nontender to palpation : blackwell since removed MSK/Neuro: dressing c/d/i to lumbar spine, dorsiflexion/plantar flexion intact, pulses palpable, calves nontender, DANIEL w/ scant output Psych: AOx3, cooperative with exam Results & Data Results & Data Vital Signs (Past 12 Hours) Vital Signs Temp Pulse Resp BP Pulse Ox O2 Del Method 04/09/23 08:07 37.3 C 68 16 144/61 H 95 Room Air 04/08/23 20:53 36.9 C 84 16 140/62 94 Room Air Laboratory Results 04/09/23 04/09/23 04/08/23 Range/Units 07:21 06:50 20:44 WBC 9.10 (4.8-10.8) K/ul RBC 2.58 L (4.70-6.10) M/uL Hgb 9.5 L (14.0-18.0) g/dl Hct 28.3 L (42.0-52.0) % MCV 109.7 H (80.0-100.0) fL MCH 36.8 H (25.0-34.0) pg MCHC 33.6 (32.0-36.0) g/dL RDW Std Deviation 54.4 H (36.4-46.3) fL RDW Coeff of Germán 13.4 (11.5-14.5) % Plt Count 268 (130-400) K/uL MPV 10.0 (9.4-12.4) fL Immature Gran % (Auto) 3.8 % Neut % (Auto) 59.9 % Lymph % (Auto) 12.7 % [place] % (Auto) 21.9 % Eos % (Auto) 0.4 % Baso % (Auto) 1.3 % Neut # (Auto) 5.44 (1.40-6.50) K/uL Lymph # (Auto) 1.16 L (1.20-3.40) K/uL [place] # (Auto) 1.99 H (0.11-0.59) K/uL Eos # (Auto) 0.04 (0.00-0.50) K/uL Baso # (Auto) 0.12 (0.00-0.20) K/uL Immature Gran # (Auto) 0.35 H (0.01-0.20) K/uL Sodium 137 (136-145) mmol/L Potassium 4.0 (3.5-5.1) mmol/L Chloride 104 (98-107) mmol/L Carbon Dioxide 28 (21-32) mmol/L Anion Gap 5 (3-11) BUN 33 H (6-23) mg/dl Creatinine 1.14 (0.6-1.4) mg/dl Est Cr Clr Drug Dosing 55.3 ml/min Est GFR ( Amer) 71.5 ml/min Est GFR (Non-Af Amer) 61.7 ml/min BUN/Creatinine Ratio 28.9 H (10-20) Glucose 122 H (70-99(Fasting)) mg/dl POC Glucose 124 H 151 H (70-99) mg/dl Estimat Average Glucose mg/dl Hemoglobin A1c (4.5-5.6) % Calcium 9.4 (8.6-10.3) mg/dl Magnesium 2.1 (1.7-2.4) mg/dl Total Creatine Kinase 172 (30-223) U/L 04/08/23 04/08/23 04/08/23 Range/Units 16:51 11:35 06:54 WBC (4.8-10.8) K/ul RBC (4.70-6.10) M/uL Hgb (14.0-18.0) g/dl Hct (42.0-52.0) % MCV (80.0-100.0) fL MCH (25.0-34.0) pg MCHC (32.0-36.0) g/dL RDW Std Deviation (36.4-46.3) fL RDW Coeff of Germán (11.5-14.5) % Plt Count (130-400) K/uL MPV (9.4-12.4) fL Immature Gran % (Auto) % Neut % (Auto) % Lymph % (Auto) % [place] % (Auto) % Eos % (Auto) % Baso % (Auto) % Neut # (Auto) (1.40-6.50) K/uL Lymph # (Auto) (1.20-3.40) K/uL [place] # (Auto) (0.11-0.59) K/uL Eos # (Auto) (0.00-0.50) K/uL Baso # (Auto) (0.00-0.20) K/uL Immature Gran # (Auto) (0.01-0.20) K/uL Sodium (136-145) mmol/L Potassium (3.5-5.1) mmol/L Chloride (98-107) mmol/L Carbon Dioxide (21-32) mmol/L Anion Gap (3-11) BUN (6-23) mg/dl Creatinine (0.6-1.4) mg/dl Est Cr Clr Drug Dosing ml/min Est GFR ( Amer) ml/min Est GFR (Non-Af Amer) ml/min BUN/Creatinine Ratio (10-20) Glucose (70-99(Fasting)) mg/dl POC Glucose 124 H 161 H (70-99) mg/dl Estimat Average Glucose 148 mg/dl Hemoglobin A1c 6.8 H (4.5-5.6) % Calcium (8.6-10.3) mg/dl Magnesium (1.7-2.4) mg/dl Total Creatine Kinase (30-223) U/L PG Care Time/CCT Total # of Minutes Spent Total Time Spent with Patient: Total time spent is greater than 50% in coordination of care (as documented) at patient's floor/unit and/or counseling patient: Coding Level of Care Code 24567 SUB INP/OBS CARE 2/35MIN Diagnoses Neurogenic claudication due to lumbar spinal stenosis M48.062 Positive Lyme disease serology R76.8 Essential hypertension I10 Chronic kidney disease N18.9 Type 2 diabetes mellitus E11.9 Folate deficiency E53.8 Carotid artery disease I77.9
--- NOTE | 2023-04-09 09:00 | Orthopedic Progress Note ---
Date of Service April 09, 2023 Assessment & Plan (1) Neurogenic claudication due to lumbar spinal stenosis: Plan: This time continue physical therapy we will assess him for possible rehab versus home PT. Anticipate discharge tomorrow. Admission and Anticipated Discharge Date Admission Date: April 06, 2023 Subjective Back pain controlled leg symptoms markedly improved Physical Exam Physical Exam: Patient is in the chair at the bedside. Is good strength testing. Appears comfortable. Results & Data Vital Signs (Past 12 Hours) Vital Signs Temp Pulse Resp BP Pulse Ox O2 Del Method 04/09/23 08:07 37.3 C 68 16 144/61 H 95 Room Air Queries Orthopedic Spine Acute Posthemorrhagic Anemia: Yes
[2023-04-10 08:10] LABS: Basophils # (auto) 0.17 K/uL (0.00-0.20); Basophils % (auto) 1.7 %; Eosinophils # (auto) 0.07 K/uL (0.00-0.50); Eosinophils % (auto) 0.7 %; Hematocrit (blood only) 31.1 % (42.0-52.0); Hemoglobin 10.2 g/dl (14.0-18.0); Immature Granulocytes % (auto) 4.9 %; Lymphocytes # (auto) 1.56 K/uL (1.20-3.40); Lymphocytes % (auto) 15.3 %; Mean Corpuscular Hemoglobin 36.2 pg (25.0-34.0); Mean Corpuscular Hgb Conc 32.8 g/dL (32.0-36.0); Mean Corpuscular Volume 110.3 fL (80.0-100.0); Mean Platelet Volume 10.1 fL (9.4-12.4); Monocytes % (auto) 14.7 %; Neutrophils # (auto) 6.39 K/uL (1.40-6.50); Neutrophils % (auto) 62.7 %; Platelet Count 344 K/uL (130-400); RDW Coefficient of Variation 13.4 % (11.5-14.5); RDW Standard Deviation 53.7 fL (36.4-46.3); Red Blood Count 2.82 M/uL (4.70-6.10); White Blood Count 10.19 K/ul (4.8-10.8)
[2023-04-10 08:25] LABS: Calcium 9.9 mg/dl (8.6-10.3); Creatinine Clr Calc Pharmacy 50.5 ml/min; Est GFR (Non-African American) 55.2 ml/min; Potassium 4.1 mmol/L (3.5-5.1)
--- NOTE | 2023-04-10 08:32 | Discharge Summary ---
Date of Service April 10, 2023 Admission HPI Per Admitting Provider This is a 78-year-old male presents with chronic persistent back and leg pain after failing since course of nonoperative care is here for surgical invention. Principal Diagnosis Lumbar spinal stenosis with neurogenic claudication Discharge Data Allergies Allergy/AdvReac Type Severity Reaction Status Date / Time bee venom protein (honey bee) Allergy Severe ANAPHYLAXIS Verified 04/06/23 10:47 Consultations 04/06/23 17:13 Consult Hospitalist Routine Procedures Performed Operation Date: 04/06/23 12:10 Actual Procedures p L2-S1 Decompression and Fusion, Spinal Cord Monitoring - Burke Cote DO Ordered Studies 04/06/23 [place] lumbar spine 2-3V Routine Hospital Course (1) Neurogenic claudication due to lumbar spinal stenosis: Patient on multilevel lumbar decompression fusion tolerated as well as to the orthopedic floor postoperative. Postoperatively progressed appropriately. Leg symptoms improving. Strength improving. DANIEL drain decreased appropriately. Subsequently discharged to rehab. Discharge orders instructions found in chart for further review. Total Time Total Time Spent Total Time Spent (In Minutes): 20 minutes Discharge Plan Discharge Items Patient Disposition: Transfer Inpatient Rehab Fac Reason For Visit: Lumbar Stenosis with Neurogenic claudication, Lumb Discharge Diagnosis: Lumbar spinal stenosis with neurogenic claudication Activity: As commented below Non-emergency contact: Primary Care Provider Call non-emergency contact if: you have any medication questions Follow-up/Referrals: Vanessa Jacobs MD [Primary Care Provider] - Diet: Regular Addtl Attending Provider Instructions: ACTIVITY RECOMMENDATIONS: SELF CARE INSTRUCTIONS AFTER THORACIC/LUMBAR FUSIONS 1. You may walk to your tolerance. It is good exercise for your legs and back. Expect some back and intermittent leg aches and pains. 2. You may perform "counter-top" level activities (make a sandwich, maria teresa with a project, etc.). 3. No bending or lifting of more than 10 pounds or back twisting of any nature (roll like a log when turning in bed). 4. You may ride in a car for 20-30 minutes at a time. No driving until after your first visit with your doctor. 5. Frequent changes of position and restricting sitting to 30 minutes at a time will help limit the amount of back spasms and stiffness you may experience. 6. You may discontinue the use of ambulatory aids (cane, crutches, etc.) once your strength and confidence allow. 7. You may executive director of marketing the shower and let water strike your incision when you a rrive home at least once daily. Do not take a tub bath, sit in a hot tub or go into a swimming pool until after your first recheck in the office. SPECIAL CARE INSTRUCTIONS: VERY IMPORTANT TO READ AND REVIEW A. Your surgical incision has been closed with a cosmetic suture under the skin that will dissolve in about 6 weeks. In 14 days, you can use a pair of clean scissors and cut the suture that is left outside of the skin at the ends of your incision. 1. The small skin tapes can be removed 7 days after surgery if they have not fallen off by that point. 2. You may keep the wound open to air as much as possible to promote healing after post-op day number 5 unless told otherwise by your doctor. 3. If you think the wound looks like it is becoming infected (redness or worsening drainage) and/or you are experiencing fever, chill or worsening back pain and muscle spasms, contact the office so that we may evaluate you as soon as possible. B. Complications are uncommon, but please contact us if you have any signs or symptoms of: 1. wound infection (fever higher than 102.5 degrees F, redness, separation of wound, drainage, or increasing pain from the incision) 2. blood clots in legs (pain, swelling, redness and warmth in legs) 3. urinary tract infection (fever higher than 102.5 degrees F, burning upon urination or increased frequency of urination) 4. nerve problems (inability to walk on your toes or heels, numbness, loss of bowel or bladder control) 5. any other symptoms that concern you C. Please call the office at if you have any concerns or questions about your operation or recovery. D. No smoking! Smoking drastically decreases the chance of a solid fusion. E. Do not take any anti-inflammatory medications (Indocin, Advil, Motrin, Aspirin, Naprosyn, etc.) as these may inhibit the chance of a solid fusion. Tylenol is okay to take for pain. MANAGING PAIN AFTER SPINAL SURGERY 1. Narcotic medication is intended for short-term use and will be provided for surgical pain. Surgical pain usually lasts for a period of 4-6 weeks. Narcotic medication includes Percocet, Vicodin, Darvocet, Tylenol #3 or Lortab. 2. Longer-term pain is more appropriately treated with non-narcotic medication such as Tylenol ES. 3. Muscle spasm is not appropriately treated with narcotics. Muscle relaxers such as Soma, Flexeril or Skelaxin can be used along with Tylenol ES. 4. Remember that we all live with some "aches and pains". This is not unusual or uncommon after an injury or as we get older. a. Back pain is expected and may include muscle spasms for 4 to 6 weeks afte r surgery. The pain should gradually improve. If the pain worsens for no apparent reason, please contact the office. b. Intermittent leg pain may also be experienced and should not be concerned about unless it worsens for no apparent reason. If so, please contact the office. 5. We will provide appropriate medication within the normal guidelines of their prescribed use. We will also be very cautious and aware of potential abuse and extended duration of patients' medication needs. a. Pain medications are for your comfort and to assist with sleep and rest so that the tissue can heal. They are not provided in order to return to normal activity and should not be used through the day. To do so or worsening pain at night can result from ongoing tissue damage and development of tolerance to the prescribed medicine. 6. Please allow 2-3 days to process refills. Prescriptions will not be mailed but must be picked up at the office. FOLLOW UP VISIT: Keep your scheduled follow-up appointment. Any questions, please call the office at . Pending Studies at Discharge: No Stand-Alone Forms: [facility] Sm[facility] Cessation Skilled Items Patient informed of condition?: Yes DNR: No Discharge Level of Care: Acute rehab Communicable Disease: No Discharge Prognosis: Improving Lines: None Urinary Catheter: No Medications and DC Order Prescriptions: New tramadol 50 mg tablet 50 mg PO Q6H PRN (Reason: pain, moderate) Qty: 30 0RF oxycodone 5 mg tablet 5 mg PO Q6H PRN (Reason: pain) Qty: 30 0RF folic acid 1 mg tablet 1,000 mcg PO DAILY Qty: 30 0RF Continued epinephrine [EpiPen 2-Evens] 0.3 mg/0.3 mL auto-injector 0.3 mg IM ONCE PRN (Reason: anaphylaxis) losartan 100 mg tablet 100 mg PO QAM atorvastatin 40 mg tablet 40 mg PO QPM gabapentin 300 mg capsule 300 mg PO BID Rx Instructions: taking 600 mg daily aspirin 81 mg tablet,chewable 81 mg PO QAM fenofibrate nanocrystallized 145 mg tablet 145 mg PO PM dapagliflozin propanediol [Farxiga] 10 mg tablet 10 mg PO QAM amlodipine 2.5 mg tablet 2.5 mg PO PM doxycycline hyclate 100 mg Capsule 100 mg PO BID Qty: 56 0RF cholecalciferol (vitamin D3) [Vitamin D3] 50 mcg (2,000 unit) Capsule 50 mcg PO DAILY Discharge Orders: Discharge Order (Routine); Ordered 04/10/23 Ordered By: Burke Stevens/Other Patient Handouts: Managing Type 2 Diabetes Admission Data Admit Date/Time: 04/06/23 15:49 Attending Provider: Burke Cote Admit Provider: Burke Cote Primary Care Provider: Vanessa Jacobs Other Providers: Jhony Jessica
[2023-04-10 09:06] LABS: Anisocytosis Present; Macrocytosis Present; Polychromasia 1+
--- NOTE | 2023-04-10 09:11 | Hospitalist Progress Note ---
Date of Service April 10, 2023 Assessment & Plan (1) Neurogenic claudication due to lumbar spinal stenosis: Plan: s/p #1 lumbar decompression bilaterally facetectomies and foraminotomies L2-3, L3-L4, L4-5 and L5-S1. #2 posterior spinal fusion L2-S1. #3 placed posterior segmental instrumentation L2-S1. #4 interbody fusion L3-L4, L4-5 and L5-S1. #6 placement spiral cage 13 x 26 mm at L3-L4, 14 x 26 mm at L4-5 and 12 x 26 mm at L5-S1. #6 placement locally harvested morselized autograft and posterior gutters. #7 placement of Morpheus bone graft in the interbody space and infuse collagen sponge combined with Koros in the posterior lateral gutters. with Dr Cote 04/06 WBC wnl, afebrile (low grade temp post-op suspected from atelectasis, incentive spirometry encouraged- nothing since) Hgb 13.5--> 9.0, acute blood loss ANEMIA in setting of surgery as well as dilutional from IVF. Asymptomatic, no CP/SOB/lightheadedness reported -EBL 350cc, DANIEL output 375cc + 185cc Hgb stable/improved on repeat to 10.2 MCV >100, added B12/folate to AM labs -B12 not deficient, - folate LOW -- PO replacement ordered and should be continued on dc AGGRESSIVE bowel regimen/ambulation encouraged (+BS on exam/abdomen slightly distended but NONTEDNER, increased flatus reported 04/09-) -discussed to alert to any abdominal pain/worsened distension/etc Pain control/PT/OT per primary service DVT: SCDs, aj alcaraz. Remains on baby aspirin daily for hx PAD s/p stenting, R CEA in 2016 PT/OT w/ arrangements for [facility] this afternoon per CM (2) Positive Lyme disease serology: Plan: as above, continues on doxy BID. no issues w/ reflux reported. to complete 4 week course per prior admission (3) Essential hypertension: Plan: On losartan 100mg, amlodipine 2.5mg -- held 04/08 for borderline BP and improved/stable 144/61 w/ stable renal function and was resumed continues on fenofibrate/atorvastatin for HLD --> atorvastatin placed on hold given elevated CK (checked due to prior elevation) Repeat CK wnl, resumed (4) Chronic kidney disease: Plan: Renal function appears around baseline, continues on home meds Cr back to baseline/better than baseline and losartan resumed renal dose meds/avoid nephrotoxins as able f/u pcp (5) Type 2 diabetes mellitus: Plan: Last a1c in system OLD 7,1, only on darxiga 10mg daily. Repeat 6.8 and improved pharmacy consulted for glycemic management while on dexamethasone per primary service and family brought in [facility] which has been resumed BSGs acceptable (6) Folate deficiency: Plan: checked/low - PO replacement ordered and would continue at discharge (7) Carotid artery disease: Plan: hx R CEA in 2017, also multiple LE stenting procedures for PAD. Had recent cardiac cath pre-op w/ 100% chronic proximal RCA occlusion, 50% proximal LAD stenosis. Medical management recommended -- see note in chart No chest pain reported Remains on baby aspirin statin held due to slightly elevated CK on labs, resumed as normalized Plan Thank you for allowing hospitalist service to participate in the care of Mr Conde. Hospitalist service will sign off at this time. Please call with any questions/concerns Admission and Anticipated Discharge Date Admission Date: April 06, 2023 Supervising Physician Co-Signing Physician Notes The patient was not seen by me. The chart was reviewed. Case discussed with LISA Padron. Agree with assessment and plan Subjective Eval this morning, doing well, sitting up eating breakfast. Passing some more gas but still no bowel movement. Does not want a suppository, just got some prune juice. Abdomen distended but not as much as day prior. Reports feeling mildly uncomfortable. Given +BS/softer on exam will hold off KUB but continued bowel regimen/ambulation encouraged. He is inquiring about length of time for bending/lifting/turning restriction as well as weight limit. Will message primary and let him know -- 6 weeks restriction bending/lifting/twisting. He reports he was seen/talked to lady from [facility] and that is plan at [facility], he believes they will have bed today. Will confirm with case management. No fever/chills, chest pain/sob reported. Questions/concerns addressed at this time. Physical Exam Physical Exam: General: 78yo male sitting up in chair, eating breakfast, NAD HEENT: atraumatic, normocephalic, mmm, trachea midline Resp: even/unlabored, faint expiratory wheeze, no crackles/rales, on room air 93% CV: RRR, faint systolic murmur, no pitting edema/calf tenderness GI: slight distension but less distension compared to day prior, no overt tenderness/guarding : no blackwell MSK/Neuro: dressing c/d/i to lumbar spine, dorsiflexion/plantar flexion intact, pulses palpable, calves nontender Psych: AOx3, cooperative with exam Results & Data Results & Data Vital Signs (Past 12 Hours) Vital Signs Temp Pulse Resp BP Pulse Ox O2 Del Method 04/10/23 07:05 37.0 C 74 18 102/48 L 93 Room Air Laboratory Results 04/10/23 04/10/23 04/09/23 Range/Units 07:48 07:13 20:25 WBC 10.19 (4.8-10.8) K/ul RBC 2.82 L (4.70-6.10) M/uL Hgb 10.2 L (14.0-18.0) g/dl Hct 31.1 L (42.0-52.0) % MCV 110.3 H (80.0-100.0) fL MCH 36.2 H (25.0-34.0) pg MCHC 32.8 (32.0-36.0) g/dL RDW Std Deviation 53.7 H (36.4-46.3) fL RDW Coeff of Germán 13.4 (11.5-14.5) % Plt Count 344 (130-400) K/uL MPV 10.1 (9.4-12.4) fL Immature Gran % (Auto) 4.9 % Neut % (Auto) 62.7 % Lymph % (Auto) 15.3 % [place] % (Auto) 14.7 % Eos % (Auto) 0.7 % Baso % (Auto) 1.7 % Neut # (Auto) 6.39 (1.40-6.50) K/uL Lymph # (Auto) 1.56 (1.20-3.40) K/uL [place] # (Auto) 1.50 H (0.11-0.59) K/uL Eos # (Auto) 0.07 (0.00-0.50) K/uL Baso # (Auto) 0.17 (0.00-0.20) K/uL Immature Gran # (Auto) 0.50 H (0.01-0.20) K/uL Polychromasia 1+ Anisocytosis Present Macrocytosis Present Sodium 136 (136-145) mmol/L Potassium 4.1 (3.5-5.1) mmol/L Chloride 101 (98-107) mmol/L Carbon Dioxide 28 (21-32) mmol/L Anion Gap 7 (3-11) BUN 35 H (6-23) mg/dl Creatinine 1.25 (0.6-1.4) mg/dl Est Cr Clr Drug Dosing 50.5 ml/min Est GFR ( Amer) 64.0 ml/min Est GFR (Non-Af Amer) 55.2 ml/min BUN/Creatinine Ratio 28.0 H (10-20) Glucose 136 H (70-99(Fasting)) mg/dl POC Glucose 132 H 139 H (70-99) mg/dl Calcium 9.9 (8.6-10.3) mg/dl 04/09/23 04/09/23 Range/Units 16:44 11:50 WBC (4.8-10.8) K/ul RBC (4.70-6.10) M/uL Hgb (14.0-18.0) g/dl Hct (42.0-52.0) % MCV (80.0-100.0) fL MCH (25.0-34.0) pg MCHC (32.0-36.0) g/dL RDW Std Deviation (36.4-46.3) fL RDW Coeff of Germán (11.5-14.5) % Plt Count (130-400) K/uL MPV (9.4-12.4) fL Immature Gran % (Auto) % Neut % (Auto) % Lymph % (Auto) % [place] % (Auto) % Eos % (Auto) % Baso % (Auto) % Neut # (Auto) (1.40-6.50) K/uL Lymph # (Auto) (1.20-3.40) K/uL [place] # (Auto) (0.11-0.59) K/uL Eos # (Auto) (0.00-0.50) K/uL Baso # (Auto) (0.00-0.20) K/uL Immature Gran # (Auto) (0.01-0.20) K/uL Polychromasia Anisocytosis Macrocytosis Sodium (136-145) mmol/L Potassium (3.5-5.1) mmol/L Chloride (98-107) mmol/L Carbon Dioxide (21-32) mmol/L Anion Gap (3-11) BUN (6-23) mg/dl Creatinine (0.6-1.4) mg/dl Est Cr Clr Drug Dosing ml/min Est GFR ( Amer) ml/min Est GFR (Non-Af Amer) ml/min BUN/Creatinine Ratio (10-20) Glucose (70-99(Fasting)) mg/dl POC Glucose 192 H 162 H (70-99) mg/dl Calcium (8.6-10.3) mg/dl PG Care Time/CCT Total # of Minutes Spent Total Time Spent with Patient: Total time spent is greater than 50% in coordination of care (as documented) at patient's floor/unit and/or counseling patient: Coding Level of Care Code 74321 SUB INP/OBS CARE 03/12MIN Diagnoses Neurogenic claudication due to lumbar spinal stenosis M48.062 Positive Lyme disease serology R76.8 Essential hypertension I10 Chronic kidney disease N18.9 Type 2 diabetes mellitus E11.9 Folate deficiency E53.8 Carotid artery disease I77.9
== END 2023-04-10 15:04 | DRG 454 ==
LOC: ASU 10:29 → 3N 15:49